=== PATIENT | male | born 1940 | race Hispanic/Latino ===

== ENCOUNTER 2018-12-24 18:10 | Inpatient (IN) | payer MEDICARE ==
[2018-12-24 18:17] VITALS: BMI 26.4
[2018-12-24] MEDS ORDERED: Sodium Chloride 0.9% 500 ML IV STA (18:54)
[2018-12-24 19:19] LABS: VENOUS BLOOD GAS BASE EXCESS 2.6 mmol/L (0.0-2.0); VENOUS BLOOD GAS PO2 18 mm/Hg (30-55); VENOUS BLOOD PH 7.41 (7.32-7.43)
[2018-12-24 19:42] LABS: ALB/GLOB RATIO 1.3 (1.1-1.8); ALT/SGPT 33 U/L (7-56); AST/SGOT 34 U/L (17-59); BASO # 0.03 K/mm3 (0.0-2.0); BASO % 0.2 % (0.0-3.0); BLOOD UREA NITROGEN 20 mg/dL (7-21); CALCIUM 9.8 mg/dL (8.4-10.5); EOS # 0.1 (0.0-0.7); EOS % 0.9 % (1.5-5.0); GFR NON-AFRICAN AMERICAN 59; HEMOGLOBIN 16.7 g/dL (14.0-18.0); LYMPH # 0.7 (1.2-3.4); LYMPH % 4.3 % (22.0-35.0); MEAN CELL VOLUME 87.5 fl (80.0-105.0); MEAN CORPUSCULAR HEMOGLOBIN 28.5 pg (25.0-35.0); MEAN CORPUSCULAR HGB CONC 32.6 g/dl (31.0-37.0); MEAN PLATELET VOLUME 10.2 fl (7.0-11.0); MONO # 0.4 (0.1-0.6); MONO % 2.4 % (1.0-6.0); PLATELET COUNT 214 10^3/uL (120.0-450.0); RBC 5.86 10^6/uL (3.5-6.1); RED CELL DISTRIBUTION WIDTH 14.1 % (11.5-14.5); WHITE BLOOD COUNT 16.3 10^3/uL (4.5-11.0)
[2018-12-24 20:02] LABS: VENOUS BLOOD GAS BASE EXCESS 0.1 mmol/L (0.0-2.0); VENOUS BLOOD GAS PO2 97 mm/Hg (30-55); VENOUS BLOOD PH 7.41 (7.32-7.43)
[2018-12-24 20:10] LABS: BARBITURATES, UR NEGATIVE (NEGATIVE); BENZODIAZEPINES, UR NEGATIVE (NEGATIVE); OPIATES, UR NEGATIVE (NEGATIVE); PHENCYCLIDINE, UR NEGATIVE (NEGATIVE)
[2018-12-24] MEDS ORDERED: Azithromycin 500MG/NS 250ml 500 MG/250 ML BAG IVPB STA (20:14)
[2018-12-24] MEDS ORDERED: cefTRIAXone 1 gm 1 GM/100 ML BAG IVPB STA (20:15)
--- NOTE | 2018-12-24 20:21 | ED PDOC ---
Arrival/HPI - General Chief Complaint: Medical Clearance Time Seen by Provider: 12/24/18 18:38 Historian: Patient - History of Present Illness Narrative History of Present Illness (Text): 12/24/18 20:22 70-year-old male with no significant past medical history reports while he was visiting [place] of his and his [place] he developed sudden onset of chills and shaking. States that despite drinking hot tea and warming himself with a blanket he still was shaking. Otherwise: (-) fever, (-) cough, (-) sore throat, (-) URI symptoms, (-) SOB, (-) chest pain, (-) N/V/D, (- ) abdominal pain, (-) flank pain, (-) urinary symptoms, (-) recent travel, (-) sick contacts. PMD Naheed Past Medical History - Cardiac Hx Cardiac Disorders: No - Pulmonary Hx Respiratory Disorders: No - Neurological Hx Neurological Disorder: No - HEENT Hx HEENT Disorder: No - Renal Hx Renal Disorder: No - Endocrine/Metabolic Hx Endocrine Disorders: No - Hematological/Oncological Hx Blood Disorders: No - Integumentary Hx Dermatological Disorder: No - Musculoskeletal/Rheumatological Hx Musculoskeletal Disorders: No - Gastrointestinal Hx Gastrointestinal Disorders: No - Genitourinary/Gynecological Hx Genitourinary Disorders: Yes Hx Prostate Cancer: Yes - Psychiatric Hx Psychophysiologic Disorder: No Hx Substance Use: No - Anesthesia Hx Anesthesia: No Hx Anesthesia Reactions: No Hx Malignant Hyperthermia: No Family/Social History Family/Social History: No Known Family HX Smoking Status: Never Smoked Hx Alcohol Use: No Hx Substance Use: No Allergies/Home Meds Allergies/Adverse Reactions: Allergies Penicillins Allergy (Verified 12/24/18 18:17) RASH Home Medications: Home Meds Medication Instructions Recorded Confirmed No Known Home Med 12/24/18 12/24/18 Review of Systems - Review of Systems Constitutional: absent: Fatigue, Fevers ENT: absent: Sore Throat, Rhinorrhea, Sinus Congestion Respiratory: absent: SOB, Cough, Sputum, Wheezing Cardiovascular: absent: Chest Pain, Palpitations, Edema Gastrointestinal: absent: Abdominal Pain, Nausea, Vomiting Genitourinary Male: absent: Dysuria, Frequency, Hematuria Musculoskeletal: absent: Arthralgias, Back Pain, Neck Pain Skin: absent: Rash, Pruritis, Skin Lesions Neurological: absent: Headache, Dizziness Physical Exam Vital Signs Temp Pulse Resp BP Pulse Ox 12/24/18 19:08 100.7 F H 12/24/18 19:00 100.7 F H 12/24/18 18:31 98.5 F 87 18 165/57 H 95 Temperature: Febrile Blood Pressure: Normal Pulse: Regular Respiratory Rate: Normal Appearance: Positive for: Well-Appearing, Non-Toxic, Comfortable Pain Distress: None Mental Status: Positive for: Alert and Oriented X 3 - Systems Exam Head: Present: Atraumatic, Normocephalic Pupils: Present: PERRL Extroacular Muscles: Present: EOMI Conjunctiva: Present: Normal Mouth: Present: Dry Neck: Present: Normal Range of Motion Respiratory/Chest: Present: Clear to Auscultation, Good Air Exchange. No: Respiratory Distress, Accessory Muscle Use, Wheezes, Decreased Breath Sounds, Rales, Rhonchi Cardiovascular: Present: Regular Rate and Rhythm, Normal S1, S2. No: Murmurs Abdomen: No: Tenderness, Distention, Peritoneal Signs Back: Present: Normal Inspection Upper Extremity: Present: Normal Inspection. No: Cyanosis, Edema Lower Extremity: Present: Normal Inspection. No: Edema Neurological: Present: GCS=15, CN II-XII Intact, Speech Normal, Motor Func Grossly Intact, Normal Sensory Function Skin: Present: Warm, Dry, Normal Color. No: Rashes Psychiatric: Present: Alert, Oriented x 3, Normal Insight, Normal Concentration Medical Decision Making ED Course and Treatment: 12/24/18 20:17 Plan: -- Labs -- IV fluids -- Urinalysis -- UDS -- Rapid flu -- EKG -- CXR -- Reassess and disposition Rectal Temp 100.7 CXR : +RLL infiltrate. Labs : wbc 16 w/ a L shift, lactate 1.3, UDS (-), flu (-) On reevaluation, patient remains awake alert and oriented 3 in no acute distress, breathing easy and unlabored. Diagnostic results d/w the patient. Diagnosis of pneumonia d/w the patient and family. Patient reports a pcn allergy, but only develops a rash without swelling/anaphylaxis. Zithromax 500 mg IV and Rocephin 1 g IV ordered. Case d/w Dr. Farfan, agrees with plan for admission, request Dr. Herrera for pulmonary consult and Dr. Bonilla for ID consult. Patient and family notified of plan for admission, which they agree with. - Lab Interpretations Lab Results: pO2 97 mm/Hg (30-55) H 12/24/18 19:58 ABG Carboxyhemoglobin 1.5 % (0.5-1.5) 12/24/18 19:10 POC ABG HHb (Measured) 64.3 % (0-5) H 12/24/18 19:10 ABG Methemoglobin 0.4 % (0.0-3.0) 12/24/18 19:10 VBG pH 7.41 (7.32-7.43) 12/24/18 19:58 VBG pCO2 39.0 (40-60) L 12/24/18 19:58 VBG HCO3 24.7 mmol/l (21-28) 12/24/18 19:58 VBG Total CO2 25.9 mmol.L (22-28) 12/24/18 19:58 VBG O2 Sat (Calc) 99.6 % (40-65) H 12/24/18 19:58 VBG Base Excess 0.1 mmol/L (0.0-2.0) 12/24/18 19:58 VBG Hgb O2 Saturation 33.8 % (95.0-98.0) L 12/24/18 19:10 VBG Potassium 3.5 mmol/L (3.6-5.2) L 12/24/18 19:58 Hemoglobin 16.8 g/dL (11.7-17.4) 12/24/18 19:10 Sodium 137.0 mmol/L (132-148) 12/24/18 19:58 Chloride 105.0 mmol/L (98-107) 12/24/18 19:58 Glucose 98 mg/dl (75-110) 12/24/18 19:58 Lactate 1.3 mmol/L (0.7-2.1) 12/24/18 19:58 FiO2 21.0 % 12/24/18 19:58 Crit Value Called To [email or web address] [email or web address] 12/24/18 19:10 Crit Value Called By sakshi Jolley 12/24/18 19:10 Blood Gas Notified Time 191712/24/18 19:10 Total Bilirubin 0.8 mg/dL (0.2-1.3) 12/24/18 19:14 AST 34 U/L (17-59) 12/24/18 19:14 ALT 33 U/L (7-56) 12/24/18 19:14 Alkaline Phosphatase 115 U/L (38-126) 12/24/18 19:14 Total Protein 8.7 g/dL (5.8-8.3) H 12/24/18 19:14 Albumin 5.0 g/dL (3.0-4.8) H 12/24/18 19:14 Globulin 3.7 gm/dL 12/24/18 19:14 Albumin/Globulin Ratio 1.3 (1.1-1.8) 12/24/18 19:14 - RAD Interpretation Radiology Orders: 12/24/18 18:53 CHEST PORTABLE [RAD] Stat - Medication Orders Current Medication Orders: Discontinued Medications Acetaminophen (Tylenol 325mg Tab) 975 mg PO STAT STA Stop: 12/24/18 19:00 Last Admin: 12/24/18 19:08 Dose: 975 mg MAR Pain/Vitals Document 12/24/18 19:08 BB (Rec: 12/24/18 19:08 BB [id number]) Vitals Temperature (97.6 F-99.6 F) 100.7 F Temperature Source Rectal Sodium Chloride (Sodium Chloride 0.9%) 500 mls @ 500 mls/hr IV .Q1H STA Stop: 12/24/18 19:53 Last Admin: 12/24/18 19:08 Dose: 500 mls/hr eMAR Start Stop Document 12/24/18 19:08 BB (Rec: 12/24/18 19:08 BB [id number]) Intravenous Solution Start Date 12/24/18 Start Time 19:08 End Date 12/24/18 - PA / RX SPECIALIST / Resident Statement /DO has reviewed & agrees with the documentation as recorded. Disposition/Present on Arrival - Present on Arrival Any Indicators Present on Arrival: No History of DVT/PE: No History of Uncontrolled Diabetes: No Urinary Catheter: No History of Decub. Ulcer: No History Surgical Site Infection Following: None - Disposition Have Diagnosis and Disposition been Completed?: Yes Diagnosis: Pneumonia, Fever Disposition: HOSPITALIZED Disposition Time: 20:00 Patient Plan: Admission Patient Problems: Current Active Problems Problem Status Onset Pneumonia Acute Condition: STABLE Referrals: Maynor Farfan DO [Primary Care Provider] - Follow up with primary Forms: [employer] ([place]is[place])
[2018-12-24 20:23] LABS: URINE APPEARANCE CLEAR (CLEAR); URINE BILIRUBIN NEGATIVE (NEGATIVE); URINE BLOOD NEGATIVE (NEGATIVE); URINE COLOR YELLOW (YELLOW); URINE GLUCOSE (UA) NEGATIVE (NEGATIVE); URINE LEUKOCYTE ESTERASE NEGATIVE Leu/uL (NEGATIVE); URINE PROTEIN NEGATIVE mg/dL (<30 mg/dL); URINE UROBILINOGEN 0.2 E.U./dL (<1 E.U./dL)
[2018-12-24 20:27] LABS: HYPOCHROMIA 1+; LYMPHOCYTE 7 % (22.0-35.0); MONOCYTE 2 % (1.0-6.0); NEUTROPHIL 91 % (50.0-70.0); PLATELET ESTIMATE NORMAL (NORMAL); TOXIC GRANULATION 1+
--- NOTE | 2018-12-25 08:24 | RAD ---
Date of service: 12/24/2018 HISTORY: chills COMPARISON: No prior. FINDINGS: LUNGS: No active pulmonary disease. PLEURA: No significant pleural effusion identified, no pneumothorax apparent. CARDIOVASCULAR: Mild aortic calcification and tortuosity Normal cardiac size. No pulmonary vascular congestion. OSSEOUS STRUCTURES: No significant abnormalities. VISUALIZED UPPER ABDOMEN: Normal. OTHER FINDINGS: None. IMPRESSION: No active disease.
[2018-12-25] MEDS: Sodium Chloride 0.45% 1,000 ML IV SCH (08:54)
--- NOTE | 2018-12-25 09:26 | CON ---
DATE: 12/25/2018 PULMONARY CONSULTATION REFERRING PHYSICIAN: Dr. Maynor Farfan REASON FOR CONSULTATION: Possible right lower lobe pneumonia. The patient is a 78-year-old male, with no significant past medical history, who presents to [facility] with a one-day history of sudden onset of shaking chills. There is no history of shortness of breath at rest, dyspnea on exertion, cough or sputum production. There is also no history of chest pain, coughing up of blood, or chest pain - brought on with deep respirations. The patient did have low-grade temperatures last night (99.4). As above, he did present with shaking chills. No known infectious exposure. No history of night sweats, weight loss or appetite change prior to the above events. No history of calf pains. No history of syncope or diaphoresis. No history of recent travel or trauma. REVIEW OF SYSTEMS: No history of nausea, vomiting or diarrhea. No acute urinary symptoms. His muscles feel weak. . Rest of the review of systems is negative. ALLERGIES: TO PENICILLIN. SOCIAL HISTORY: Negative tobacco, negative for alcohol. FAMILY HISTORY: No inheritable diseases. HOME MEDICATIONS: None. PHYSICAL EXAMINATION: GENERAL: The patient appears quite comfortable this morning. He is not short of breath at rest. He is not using accessory muscles for breathing. VITAL SIGNS: Last temperature recorded - 99.4. Pulse is 76, respirations 17, blood pressure 116/70. Initial blood pressure 165/57. Oxygen saturation on room air is 96%. HEENT: Normocephalic, atraumatic. No JVD. CARDIOVASCULAR: Positive S1, S2. No S3 gallop. LUNGS: Minimal crackles - right base. Otherwise clear. EXTREMITIES: No clubbing, cyanosis or edema. Calves are nontender to palpation. GASTROINTESTINAL: Abdomen is soft, nontender, nondistended. Bowel sounds are positive. SKIN: No acute rash. NEUROLOGIC: Exam limited at the present time. PERTINENT LABORATORY DATA: Chest x-ray was done last night and reviewed. There is a possible small patchy infiltrate noted at the right base. CBC: White count 16.3K, hemoglobin 16.7, hematocrit 51.3, platelets of 214,000. Complete metabolic profile: Total protein 8.7, albumin 5. Rest of the metabolic profile is within normal limits. IMPRESSION: 1. Rule out pneumonia - right lower lobe. 2. Possible viral syndrome. 3. Leukocytosis. PLAN: The patient presents to [facility] with a one-day history of shaking chills. As above, he did have a low-grade fever last night. Upon extensive questioning, the patient offers no new or significant pulmonary symptoms. I did review the chest x-ray as above. There is a possible small right basilar infiltrate. Cultures have been ordered and will be analyzed when feasible. Procalcitonin has been ordered. The patient has been placed on appropriate antibiotic therapy by infectious disease. The patient does state to feeling much better this morning. He is clinically improved. Additional Pulmonary intervention will be based on the above results, as well as the clinical status of the patient. I will discuss the above with Dr. Farfan this morning. Thank you very much for this pulmonary consultation. Noam Herrera MD MTDNik
--- NOTE | 2018-12-25 10:19 | CARD ---
APPROVED REPORT Date of service: 12/24/2018 EKG Measurement Heart [id number] [id number] <Conclusion> Normal sinus rhythm Left anterior fascicular block ST & T wave abnormality, consider lateral ischemia Abnormal ECG
[2018-12-25] MEDS: cefTRIAXone 1 gm 1 GM/100 ML BAG IVPB SCH (11:44)
--- NOTE | 2018-12-25 12:11 | CARD ---
APPROVED REPORT Date of service: 12/25/2018 EKG Measurement Heart [id number] 160P-3 [id number] <Conclusion> Normal sinus rhythm Left axis deviation T wave abnormality, consider lateral ischemia Abnormal ECG
--- NOTE | 2018-12-25 12:49 | CP.PCM.APN ---
Subjective - Date & Time of Evaluation Date of Evaluation: 12/25/18 Time of Evaluation: 10:00 - Subjective Subjective: Pt seen and examined at bedside. Denies cough, shortness of breath or chest pain. However, states that he is feeling week. Objective - Vital Signs/Intake and Output Vital Signs (last 24 hours): Temp Pulse Resp BP Pulse Ox 98.2 F 60 20 119/72 96 12/25/18 06:00 12/25/18 06:00 12/25/18 06:00 12/25/18 06:00 12/25/18 06:00 - Medications Medications: Current Medications Albuterol/Ipratropium (Duoneb 3 Mg/0.5 Mg (3 Ml) Ud) 3 ml IH [id number] EDWIGE Ceftriaxone Sodium (Rocephin 1 Gram Ivpb) 1 gm in 100 mls @ 100 mls/hr IVPB DAILY EDWIGE; Protocol Last Admin: 12/25/18 11:44 Dose: 100 mls/hr Azithromycin (Zithromax 500mg In Ns) 500 mg in 250 mls @ 167 mls/hr IVPB DAILY EDWIGE; Protocol Sodium Chloride (Sodium Chloride 0.45%) 1,000 mls @ 40 mls/hr IV .Q24H EDWIGE Stop: 12/27/18 07:01 Last Admin: 12/25/18 08:54 Dose: 40 mls/hr Ibuprofen (Motrin Tab) 600 mg PO Q6H PRN PRN Reason: Fever >100.4 F Oseltamivir Phosphate (Tamiflu Cap) 75 mg PO BID EDWIGE; Protocol Stop: 12/30/18 09:29 Last Admin: 12/25/18 11:43 Dose: 75 mg - Labs Labs: 12/24/18 19:14 12/24/18 19:14 - Constitutional Appears: No Acute Distress - Head Exam Head Exam: NORMOCEPHALIC - Neck Exam Neck Exam: Full ROM - Respiratory Exam Additional comments: +crackles ciera lower lungs - Cardiovascular Exam Cardiovascular Exam: REGULAR RHYTHM, +S1, +S2 - GI/Abdominal Exam GI & Abdominal Exam: Soft, Normal Bowel Sounds - Rectal Exam Rectal Exam: Deferred - Neurological Exam Neurological Exam: Alert, Awake, Oriented x3 Assessment and Plan - Assessment and Plan (Free Text) Assessment: Pt is a 78 y.o. male with pmhx of prostate CA who presented to ED w/ c/o chills/chaking. Pt also states that he was coughing since October 2018 but resolved recently. ITS Impressions Chest X-Ray 12/24/18 18:53 IMPRESSION: No active disease. Plan: R/O pneumonia - CT chest pending On Zithromax IV/Rocephin IV per ID recs Pulm and ID on consult Meds per MAR Will continue to follow
[2018-12-25] MEDS: Azithromycin 500MG/NS 250ml 500 MG/250 ML BAG IVPB SCH (12:59)
--- NOTE | 2018-12-25 13:31 | CT ---
Date of service: 12/25/2018 PROCEDURE: CT Chest without contrast HISTORY: r/o pneumonia COMPARISON: None available. TECHNIQUE: Contiguous axial images were obtained through the chest without intravenous contrast enhancement. Sagittal and coronal reconstructions were performed. Radiation dose (DLP): 549.1 mGy-cm. This CT exam was performed using one or more of the following dose reduction techniques: Automated exposure control, adjustment of the mA and/or kV according to patient size, and/or use of iterative reconstruction technique. FINDINGS: LUNGS: No pulmonary infiltrate. 6 mm noncalcified nodule in right lower lobe, seen on series 3, image 74. Follow-up with noncontrast chest CT examination is advised in 6-12 months as per Fleischner society criteria. Minimal linear pleural-based scar in left lower lobe. No other mass. MEDIASTINUM: Unremarkable thoracic aorta. No aneurysm. Normal sized heart. Main pulmonary artery unremarkable. No vascular congestion. No lymphadenopathy. There is atherosclerotic calcification of thoracic aorta PLEURA: No pleural fluid. No pneumothorax. BONES: No fracture. No destructive lesion. UPPER ABDOMEN: Grossly unremarkable. OTHER FINDINGS: None. IMPRESSION: No pulmonary infiltrate. 6 mm nodule right lower lobe. Recommend follow-up noncontrast chest CT in 6-12 months. Additional minor findings as above
[2018-12-25] MEDS: Albuterol-Ipratrop 3 mg / 0.5 (3 ml) UD IH SCH ×3 (13:58→19:48)
--- NOTE | 2018-12-25 15:23 | CP.PCM.CON ---
History of Present Illness - History of Present Illness History of Present Illness: 78 year old male with PMH of newly diagnosed prostate cancer, came in to [facility] because of sudden onset chills and rigors yesterday after visiting his 's grave with family. The patient states he thought he was just cold, but kept shivering despite being under heavy blankets. He states that he has occasional dry cough, has mild chest pain on breathing, no headache or dizziness, no rhinorrhea, no abdominal pain, no diarrhea, no dysuria, no suprapubic pain, no flank pain, no dysphagia, no sore throat. CXR does not show infiltrates, but the patient has a high WBC count. Infectious Diseases consult is requested to further evaluate and manage. Review of Systems - Review of Systems All systems: reviewed and no additional remarkable complaints except (as per HPI) Past Patient History - Past Social History Smoking Status: Former Smoker - CARDIAC Hx Cardiac Disorders: No - PULMONARY Hx Respiratory Disorders: Yes Hx Pneumonia: Yes - NEUROLOGICAL Hx Neurological Disorder: No - HEENT Hx HEENT Problems: No - RENAL Hx Chronic Kidney Disease: No - ENDOCRINE/METABOLIC Hx Endocrine Disorders: No - HEMATOLOGICAL/ONCOLOGICAL Hx Blood Disorders: No - INTEGUMENTARY Hx Dermatological Problems: No - MUSCULOSKELETAL/RHEUMATOLOGICAL Hx Musculoskeletal Disorders: Yes Hx Falls: No Hx Gout: Yes - GASTROINTESTINAL Hx Gastrointestinal Disorders: No Hx Gastroesophageal Reflux: Yes - GENITOURINARY/GYNECOLOGICAL Hx Genitourinary Disorders: Yes Hx Prostate Problems: Yes (new dx prostate ca) - PSYCHIATRIC Hx Psychophysiologic Disorder: No Hx Substance Use: No - SURGICAL HISTORY Hx Surgeries: No - ANESTHESIA Hx Anesthesia: No Hx Anesthesia Reactions: No Hx Malignant Hyperthermia: No Meds Allergies/Adverse Reactions: Allergies Allergy/AdvReac Type Severity Reaction Status Date / Time Penicillins Allergy RASH Verified 12/24/18 18:17 - Medications Medications: Current Medications Ibuprofen (Motrin Tab) 600 mg PO Q6H PRN PRN Reason: Fever >100.4 F Physical Exam - Constitutional Appears: Non-toxic, No Acute Distress - Head Exam Head Exam: NORMAL INSPECTION - Respiratory Exam Respiratory Exam: Decreased Breath Sounds - Cardiovascular Exam Cardiovascular Exam: +S1, +S2 - GI/Abdominal Exam GI & Abdominal Exam: Soft. absent: Tenderness Results - Vital Signs Recent Vital Signs: Last Vital Signs Temp 99.4 F 12/24/18 22:47 Pulse 68 12/25/18 00:52 Resp 17 12/25/18 00:52 BP 116/70 12/24/18 22:47 Pulse Ox 95 12/24/18 22:47 - Labs Result Diagrams: 12/24/18 19:14 12/24/18 19:14 Labs: Laboratory Results - last 24 hr 12/24/18 12/24/18 12/24/18 19:10 19:14 19:14 WBC 16.3 H RBC 5.86 Hgb 16.7 Hct 51.3 MCV 87.5 MCH 28.5 MCHC 32.6 RDW 14.1 Plt Count 214 MPV 10.2 Neut % (Auto) 92.2 H Lymph % (Auto) 4.3 L [place] % (Auto) 2.4 Eos % (Auto) 0.9 L Baso % (Auto) 0.2 Lymph # (Auto) 0.7 L [place] # (Auto) 0.4 Eos # (Auto) 0.1 Baso # (Auto) 0.03 Absolute Neuts (auto) 15.05 H Neutrophils % (Manual) 91 H Lymphocytes % (Manual) 7 L Monocytes % (Manual) 2 Toxic Granulation 1+ Platelet Evaluation Normal Hypochromasia 1+ pO2 18 L ABG Carboxyhemoglobin 1.5 POC ABG HHb (Measured) 64.3 H ABG Methemoglobin 0.4 VBG pH 7.41 VBG pCO2 44.0 VBG HCO3 27.9 VBG Total CO2 VBG O2 Sat (Calc) 34.5 L VBG Base Excess 2.6 H VBG Hgb O2 Saturation 33.8 L VBG Potassium Hemoglobin 16.8 Glucose Lactate FiO2 Crit Value Called To shaina Bruce.rn Crit Value Called By sakshi Jolley Blood Gas Notified Time 1917 Sodium 139 Potassium 3.9 Chloride 102 Carbon Dioxide 27 Anion Gap 14 BUN 20 Creatinine 1.2 Est GFR ( Amer) > 60 Est GFR (Non-Af Amer) 59 Random Glucose 106 Calcium 9.8 Total Bilirubin 0.8 AST 34 ALT 33 Alkaline Phosphatase 115 Total Protein 8.7 H Albumin 5.0 H Globulin 3.7 Albumin/Globulin Ratio 1.3 Venous Blood Potassium Urine Color Urine Appearance Urine pH Ur Specific [place] Urine Protein Urine Glucose (UA) Urine Ketones Urine Blood Urine Nitrate Urine Bilirubin Urine Urobilinogen Ur Leukocyte Esterase Urine Opiates Screen Urine Methadone Screen Ur Barbiturates Screen Ur Phencyclidine Scrn Ur Amphetamines Screen U Benzodiazepines Scrn U Oth Cocaine Metabols U Cannabinoids Screen Influenza Typ A,B (EIA) 12/24/18 12/24/18 12/24/18 19:14 19:15 19:42 WBC RBC Hgb Hct MCV MCH MCHC RDW Plt Count MPV Neut % (Auto) Lymph % (Auto) [place] % (Auto) Eos % (Auto) Baso % (Auto) Lymph # (Auto) [place] # (Auto) Eos # (Auto) Baso # (Auto) Absolute Neuts (auto) Neutrophils % (Manual) Lymphocytes % (Manual) Monocytes % (Manual) Toxic Granulation Platelet Evaluation Hypochromasia pO2 ABG Carboxyhemoglobin POC ABG HHb (Measured) ABG Methemoglobin VBG pH VBG pCO2 VBG HCO3 VBG Total CO2 VBG O2 Sat (Calc) VBG Base Excess VBG Hgb O2 Saturation VBG Potassium Hemoglobin Glucose Lactate FiO2 Crit Value Called To Crit Value Called By Blood Gas Notified Time Sodium Potassium Chloride Carbon Dioxide Anion Gap BUN Creatinine Est GFR ( Amer) Est GFR (Non-Af Amer) Random Glucose Calcium Total Bilirubin AST ALT Alkaline Phosphatase Total Protein Albumin Globulin Albumin/Globulin Ratio Venous Blood Potassium Urine Color Yellow Urine Appearance Clear Urine pH 6.0 Ur Specific Benton 1.025 Urine Protein Negative Urine Glucose (UA) Negative Urine Ketones Negative Urine Blood Negative Urine Nitrate Negative Urine Bilirubin Negative Urine Urobilinogen 0.2 Ur Leukocyte Esterase Negative Urine Opiates Screen Negative Urine Methadone Screen Negative Ur Barbiturates Screen Negative Ur Phencyclidine Scrn Negative Ur Amphetamines Screen Negative U Benzodiazepines Scrn Negative U Oth Cocaine Metabols Negative U Cannabinoids Screen Negative Influenza Typ A,B (EIA) Negative for flu a/b 12/24/18 19:58 WBC RBC Hgb Hct MCV MCH MCHC RDW Plt Count MPV Neut % (Auto) Lymph % (Auto) [place] % (Auto) Eos % (Auto) Baso % (Auto) Lymph # (Auto) [place] # (Auto) Eos # (Auto) Baso # (Auto) Absolute Neuts (auto) Neutrophils % (Manual) Lymphocytes % (Manual) Monocytes % (Manual) Toxic Granulation Platelet Evaluation Hypochromasia pO2 97 H ABG Carboxyhemoglobin POC ABG HHb (Measured) ABG Methemoglobin VBG pH 7.41 VBG pCO2 39.0 L VBG HCO3 24.7 VBG Total CO2 25.9 VBG O2 Sat (Calc) 99.6 H VBG Base Excess 0.1 VBG Hgb O2 Saturation VBG Potassium 3.5 L Hemoglobin Glucose 98 Lactate 1.3 FiO2 21.0 Crit Value Called To Crit Value Called By Blood Gas Notified Time Sodium 137.0 Potassium Chloride 105.0 Carbon Dioxide Anion Gap BUN Creatinine Est GFR ( Amer) Est GFR (Non-Af Amer) Random Glucose Calcium Total Bilirubin AST ALT Alkaline Phosphatase Total Protein Albumin Globulin Albumin/Globulin Ratio Venous Blood Potassium 3.5 L Urine Color Urine Appearance Urine pH Ur Specific [place] Urine Protein Urine Glucose (UA) Urine Ketones Urine Blood Urine Nitrate Urine Bilirubin Urine Urobilinogen Ur Leukocyte Esterase Urine Opiates Screen Urine Methadone Screen Ur Barbiturates Screen Ur Phencyclidine Scrn Ur Amphetamines Screen U Benzodiazepines Scrn U Oth Cocaine Metabols U Cannabinoids Screen Influenza Typ A,B (EIA) Assessment & Plan - Assessment and Plan (Free Text) Plan: Assessment Systemic inflammatory response syndrome, consider due to systemic viral illness R/O Influenza, consider acute bronchitis R/O bacteremia associated with newly diagnosed prostate cancer Plan Patient has been started Rocephin and Zithromax pending blood, urine cx, PCT; reviewed CXR and CT chest which does not show infltrates - CT chest does show pulmonary nodule which needs to be followed up by PMD will monitor clinically and trend fever curve we have also started Tamiflu discussed with Dr. Farfan
--- NOTE | 2018-12-25 19:40 | HP ---
DATE OF EXAM: 12/25/2018 HISTORY OF PRESENT ILLNESS: I know Clive from the office. He comes in yesterday with a history of visiting grave of his and his mother at the cemetery, it was kind of cold out. He got chills and shaking. He was taken to the emergency room. He had some little bit of shortness of breath, mild cough with it. He has had this before. He has had multiple pneumonias in the past. He is a 78-year-old white man who presents while visiting a grave with chills, low grade fever, shaking, and uncomfortable. He has a history of prostate cancer. He sees Dr. Fan for his prostate cancer on the outpatient. He has a history of pneumonias in the past. FAMILY HISTORY: Unknown family history. SOCIAL HISTORY: Nonsmoker. No drinking. No drugs. ALLERGIES: PENICILLIN. HOME MEDICATIONS: He does not take any home medications. REVIEW OF SYSTEMS: He is a little bit tired. He had fevers. No sore throat. No congestion. He shortness of breath. He had little cough, mostly outside in cold weather. No chest pain or palpitations. No abdominal pain. No nausea or vomiting. No problems urinating, but he does have a history of prostate cancer. He does wake up at nighttime from time to time. Occasional arthritis pains, but none now. No apparent rashes or lesions that he knows of. No headache or dizziness. PHYSICAL EXAMINATION: VITAL SIGNS: He has a 100.7 temperature, 87 pulse, 18 respiratory rate, 165/57 blood pressure, and 95% O2 sat on room air. GENERAL: He is alert, well-appearing, nontoxic, comfortable, alert and oriented x3. No acute distress at this time. HEENT: Head is atraumatic and normocephalic. Extraocular muscles are intact. Pupils are equal and reactive to light. Throat is dry. NECK: Supple. No JVD. HEART: Regular rate. Normal S1 and S2. LUNGS: Decreased breath sounds. We get him to cough, there is a little bit congestion on the right base, but no wheezes or rales if he is breathing normally just when he coughs. ABDOMEN: Soft and nontender. Positive bowel sounds. EXTREMITIES: Have no edema. NEUROLOGIC: GCS is 15. Cranial nerves II through XII grossly intact. Speech is normal. Grossly intact neurologically. He is alert and oriented x3. SKIN: Warm and dry. No apparent rashes or ulcers appreciated. No palpable thyroid. LABORATORY DATA: He had multiple tests done. In the emergency room, they called the chest x-ray positive right lower lobe infiltrate. He has a 100.7 temperature. He has a white count of 16 with a left shift. Lactate was 1.3. Fluids negative. He has got history of pneumonias in the past. I have called him with a diagnosis of pneumonia. I called in Pulmonary and Infectious Disease. He is negative for the flu. Negative toxicology screen. Urine is clean. He has a 139 sodium, potassium 3.9, BUN 20, creatinine 1.2, GFR is 59, sugar is 106, and calcium is 9.8. Total bili is 0.8, AST is 34, ALT is 33, alk phos 115, and total protein is 8.7. On blood gas, lactate was 1.3. His white count was very high at 16.3, he has 16.7 hemoglobin, 51.3 hematocrit with 214 platelets. ASSESSMENT AND PLAN: He came in with shaking chills; little bit of a cough, nonproductive; not feeling well; and history of pneumonias x4 in the past. He had a white count of 16,000 with temperature is 100.7. I put him on azithromycin, Rocephin, ibuprofen, IV fluids, and oxygen. Pulmonary and Infectious Disease consults. Physical therapy and out of bed to chair orders and diet. Clive Falcon, who is being treated for right lower lobe pneumonia. Maynor Farfan DO MTDNik
[2018-12-26] MEDS: Albuterol-Ipratrop 3 mg / 0.5 (3 ml) UD IH SCH ×4 (02:04→19:51)
[2018-12-26 07:01] LABS: MEAN CELL VOLUME 86.9 fl (80.0-105.0); MEAN CORPUSCULAR HEMOGLOBIN 27.8 pg (25.0-35.0); MEAN PLATELET VOLUME 10.7 fl (7.0-11.0); RBC 5.03 10^6/uL (3.5-6.1); RED CELL DISTRIBUTION WIDTH 14.4 % (11.5-14.5); WHITE BLOOD COUNT 7.8 10^3/uL (4.5-11.0)
[2018-12-26 07:58] LABS: ALB/GLOB RATIO 1.3 (1.1-1.8); ALBUMIN 3.8 g/dL (3.0-4.8); ALT/SGPT 29 U/L (7-56); AST/SGOT 31 U/L (17-59); BLOOD UREA NITROGEN 13 mg/dL (7-21); CALCIUM 8.9 mg/dL (8.4-10.5); GFR NON-AFRICAN AMERICAN > 60
[2018-12-26] MEDS: cefTRIAXone 1 gm 1 GM/100 ML BAG IVPB SCH (09:03)
--- NOTE | 2018-12-26 09:04 | PN ---
DATE: 12/26/2018 PULMONARY NOTE SUBJECTIVE: The patient appears comfortable this morning. He is not short of breath at rest. He does complain of weakness. PHYSICAL EXAMINATION: VITAL SIGNS: (Last noted in the computer): Temperature is 99.4, pulse 77, respirations 18, blood pressure 141/75. Oxygen saturation on room air is 97%. HEENT: Normocephalic, atraumatic. No JVD. CARDIOVASCULAR: Positive S1, S2. No S3 gallop. LUNGS: Clear bilaterally this morning. GI: Abdomen is soft, nontender and nondistended. Bowel sounds are positive. EXTREMITIES: No clubbing, cyanosis or edema. Calves are nontender to palpation. SKIN: No acute rash. NEUROLOGIC: Exam limited at the present time. PERTINENT LABORATORY DATA: CAT scan of the chest was done yesterday and reviewed. There is no pulmonary infiltrate noted. There is a 6 mm solitary pulmonary nodule noted in the right lower lobe. There is no lymphadenopathy. IMPRESSION: 1. Possible viral syndrome. 2. Leukocytosis - resolved. 3. Solitary pulmonary nodule - right lower lobe. PLAN: The patient appears comfortable this morning. He is not short of breath at rest. He does state to feeling better overall. However, he does complain of being very weak this morning. On physical exam, his lungs are now clear. In addition, the oxygen saturation on room air is 97%. I did review the CAT scan findings at length this morning with the patient. The patient is well aware that he will need to follow up with me in the office - concerning the solitary pulmonary nodule. I did give him my card/information for a followup appointment. I would continue with the antibiotic coverage as per Infectious Disease. Low-grade temperatures persist. However, the leukocytosis has now resolved. Clinical status of the patient has certainly improved - compared to the initial presentation. Repeat labs are pending. I will discuss the above with Dr. Farfan. Noam Herrera MD [facility]ICA
--- NOTE | 2018-12-26 09:26 | PN ---
DATE: 12/26/2018 SUBJECTIVE: I saw him resting in bed. He slept fairly well last night. He is comfortable. He is on IV antibiotics, on Tamiflu. He is on DuoNeb, Rocephin, IV fluids, Tamiflu and Zithromax. PHYSICAL EXAMINATION: VITAL SIGNS: He has 99.4 temperature, 77 pulse, 141/75 blood pressure, 18 respiratory rate, and 97% O2 sat on room air. HEAD: Atraumatic and normocephalic. HEART: Regular rate. LUNGS: Decreased breath sounds, but clear. ABDOMEN: Soft. EXTREMITIES: No edema. NEUROLOGIC: He is comfortable. LABORATORY DATA: He has a 7.8 white count, when he came in yesterday it was 16.3 much better; hemoglobin 14, hematocrit 42.7, platelets 161. He has 139 sodium, potassium 3.9, BUN 20, creatinine 1.2, sugar is 106, calcium is 9.8, total bilirubin is 0.8, AST is 34, ALT is 33, alkaline phosphatase 115. Procalcitonin was high at 1.97. Urine was clean. Toxicology clean. Serology is clean. Micro so far is clean. ASSESSMENT AND PLAN: He is being seen by Infectious Disease and Pulmonary. He had shaking chills when he got here. He had a CAT scan of the chest done. He has a 6 mm right lower lobe nodule. Infectious Disease feels systemic inflammatory response syndrome due to systemic prior illness, rule out influenza, consider it to be bronchitis, newly diagnosed prostate cancer. When I get the okay from Infectious Disease, I will discharge him and I will continue aggressive treatment and care for possible flu, bronchitis, systemic inflammatory response syndrome. Maynor Farfan DO
[2018-12-26] MEDS: Azithromycin 500MG/NS 250ml 500 MG/250 ML BAG IVPB SCH (10:23)
--- NOTE | 2018-12-26 13:04 | CT ---
Date of service: 12/26/2018 PROCEDURE: CT Abdomen and Pelvis without intravenous contrast HISTORY: +bcx COMPARISON: None. TECHNIQUE: Without contrast.. Contrast dose: Radiation dose: Total exam DLP = 721.22 mGy-cm. This CT exam was performed using one or more of the following dose reduction techniques: Automated exposure control, adjustment of the mA and/or kV according to patient size, and/or use of iterative reconstruction technique. FINDINGS: LOWER THORAX: Unremarkable. LIVER: Unremarkable. No gross lesion or ductal dilatation. Small simple cysts are seen in the liver GALLBLADDER AND BILE DUCTS: Unremarkable. PANCREAS: Unremarkable. No gross lesion or ductal dilatation. SPLEEN: Unremarkable. ADRENALS: Unremarkable. No mass. KIDNEYS AND URETERS: Unremarkable. No hydronephrosis. No solid mass. VASCULATURE: Unremarkable. No aortic aneurysm. Aortic calcification BOWEL: Unremarkable. No obstruction. No gross mural thickening. Moderate constipation APPENDIX: Unremarkable. Normal appendix. PERITONEUM: Unremarkable. No free fluid. No free air. LYMPH NODES: Unremarkable. No enlarged lymph nodes. BLADDER: Unremarkable. REPRODUCTIVE: Unremarkable. BONES: Disc degeneration at L4-5 and L5-S1 OTHER FINDINGS: None. IMPRESSION: No acute intra-abdominal abnormalities
--- NOTE | 2018-12-26 13:27 | CP.PCM.PCO ---
Physician Communication Note - Physician Communication Note Physician Communication Note: Initial bcx growing gram (-) jesus, d/w ID & will repeat BCX.
--- NOTE | 2018-12-26 13:59 | CP.PCM.PN ---
Subjective - Date & Time of Evaluation Date of Evaluation: 12/26/18 Time of Evaluation: 11:20 - Subjective Subjective: Patient is feeling better, no fevers, no more shaking chills, no nausea, no diarrhea, no abdominal pain, no dysuria. Objective - Vital Signs/Intake and Output Vital Signs (last 24 hours): Temp Pulse Resp BP Pulse Ox 98.2 F 69 20 134/76 97 12/25/18 14:00 12/25/18 14:00 12/25/18 14:00 12/25/18 14:00 12/25/18 14:00 - Medications Medications: Current Medications Albuterol/Ipratropium (Duoneb 3 Mg/0.5 Mg (3 Ml) Ud) 3 ml IH [id number] [facility] Last Admin: 12/25/18 13:58 Dose: Not Given Ceftriaxone Sodium (Rocephin 1 Gram Ivpb) 1 gm in 100 mls @ 100 mls/hr IVPB DAILY EDWIGE; Protocol Last Admin: 12/25/18 11:44 Dose: 100 mls/hr Azithromycin (Zithromax 500mg In Ns) 500 mg in 250 mls @ 167 mls/hr IVPB DAILY EDWIGE; Protocol Last Admin: 12/25/18 12:59 Dose: 167 mls/hr Sodium Chloride (Sodium Chloride 0.45%) 1,000 mls @ 40 mls/hr IV .Q24H EDWIGE Stop: 12/27/18 07:01 Last Admin: 12/25/18 08:54 Dose: 40 mls/hr Ibuprofen (Motrin Tab) 600 mg PO Q6H PRN PRN Reason: Fever >100.4 F Oseltamivir Phosphate (Tamiflu Cap) 75 mg PO BID EDWIGE; Protocol Stop: 12/30/18 09:29 Last Admin: 12/25/18 11:43 Dose: 75 mg - Labs Labs: 12/24/18 19:14 12/24/18 19:14 - Constitutional Appears: Chronically Ill - Head Exam Head Exam: NORMAL INSPECTION - ENT Exam ENT Exam: Mucous Membranes Moist - Neck Exam Neck Exam: absent: Meningismus - Respiratory Exam Respiratory Exam: Decreased Breath Sounds - Cardiovascular Exam Cardiovascular Exam: +S1, +S2 - GI/Abdominal Exam GI & Abdominal Exam: Soft. absent: Tenderness Assessment and Plan - Assessment and Plan (Free Text) Plan: Assessment Systemic inflammatory response syndrome, sepsis due to gram negative bacilli bacteremia, source to be determined on top of probable systemic viral illness R/O Influenza, in this patient with newly diagnosed prostate cancer Plan Patient on Rocephin and has been tolerating it - will switch to Merrem for now pending identification and sensitivities of the gram negative bacilli in the blood; follow up urine cx; will get CT A/P and 2D echo and repeat blood cx reviewed CXR and CT chest which does not show infltrates - CT chest does show pulmonary nodule which needs to be followed up by PMD and Pulmonary will continue to monitor clinically and trend fever curve will also continue Tamiflu day [address] Farfan previously
[2018-12-26] MEDS: Meropenem IV 1 gm in NS 1 GM/50 ML BAG IVPB SCH ×2 (14:36→22:08)
[2018-12-26] MEDS: Sodium Chloride 0.45% 1,000 ML IV SCH (17:41)
[2018-12-27] MEDS: Albuterol-Ipratrop 3 mg / 0.5 (3 ml) UD IH SCH ×5 (01:32→19:28)
[2018-12-27] MEDS: Meropenem IV 1 gm in NS 1 GM/50 ML BAG IVPB SCH ×4 (05:30→22:10)
[2018-12-27] MEDS: Sodium Chloride 0.45% 1,000 ML IV SCH (06:25)
[2018-12-27 07:07] LABS: MEAN CELL VOLUME 86.8 fl (80.0-105.0); MEAN CORPUSCULAR HGB CONC 32.3 g/dl (31.0-37.0); MEAN PLATELET VOLUME 10.1 fl (7.0-11.0); RBC 5.36 10^6/uL (3.5-6.1); RED CELL DISTRIBUTION WIDTH 14.6 % (11.5-14.5)
[2018-12-27 08:00] LABS: ALB/GLOB RATIO 1.4 (1.1-1.8); ALBUMIN 4.1 g/dL (3.0-4.8); ALT/SGPT 38 U/L (7-56); AST/SGOT 31 U/L (17-59); BLOOD UREA NITROGEN 10 mg/dL (7-21); CALCIUM 9.5 mg/dL (8.4-10.5); GFR NON-AFRICAN AMERICAN > 60
--- NOTE | 2018-12-27 08:42 | PN ---
DATE: 12/27/2018 PULMONARY NOTE SUBJECTIVE: The patient appears very comfortable this morning. He is not short of breath at rest. PHYSICAL EXAMINATION: VITALS: (Last noted in the computer): Temperature is 98, pulse 76, respirations 18, blood pressure 119/73. Oxygen saturation on room air 93-96%. HEENT: Normocephalic, atraumatic. No JVD. CARDIOVASCULAR: Positive S1, S2. No S3 gallop. LUNGS: Clear bilaterally. EXTREMITIES: No clubbing, cyanosis, or edema. Calves are nontender to palpation. GASTROINTESTINAL: Abdomen is soft, nontender, and nondistended. Bowel sounds are positive. SKIN: No acute rash. NEUROLOGIC: Exam limited at the present time. IMPRESSION: 1. Possible viral syndrome. 2. Leukocytosis - resolved. 3. Solitary pulmonary nodule - right lower lobe. PLAN: The patient appears very comfortable this morning. He is not short of breath at rest. He does state to feeling much better overall. He does state that he is much less weak this morning. On physical exam, his lungs remain clear. In addition, there is no significant alveolar-arterial gradient. The patient is currently on DuoNeb treatments. The patient also remains on antibiotic therapy - as per Infectious Disease. The temperatures have fully resolved. The leukocytosis has fully resolved. Clinical status of the patient is significantly improved - compared to his initial presentation. If/when discharged, the patient knows he will have to follow up with me - regarding his solitary pulmonary nodule. I will discuss the above with Dr. Farfan. Noam Herrera MD MTDNik
--- NOTE | 2018-12-27 11:18 | US ---
PROCEDURE: Right lower extremity venous US HISTORY: Leg pain and swelling. Evaluate for DVT. PHYSICIAN(S): Robin Do M.D. TECHNIQUE: Duplex sonography and color-flow Doppler with graded compression were used to evaluate the deep venous system of the right lower extremity. FINDINGS: The visualized deep venous system of the right lower extremity is sonographically normal and compressible. Normal waveforms and augmentation are seen. There is no sonographic evidence for deep venous thrombosis in the visualized segments of the right lower extremity. IMPRESSION: 1. No sonographic evidence for deep venous thrombosis in the visualized segments of the right lower extremity.
--- NOTE | 2018-12-27 14:51 | PN ---
DATE: 12/27/2018 SUBJECTIVE: I saw him in his room, sitting out of bed to chair today. He is comfortable. He is having a right leg swelling. I am ordering a venous Doppler of the right leg. It is also interesting enough, had a gram-negative jesus in his blood culture. We will see what Dr. Bonilla wants to do about that. He is on antibiotics right now, but he is comfortable. No chest pain, no shortness breath or abdominal pain. He is eating well. PHYSICAL EXAMINATION: VITAL SIGNS: Temperature 98.2, 71 pulse, 136/92 blood pressure, 18 respiratory rate, 98% O2 sat in room air. HEAD: Atraumatic, normocephalic. HEART: Regular rate. LUNGS: Decreased breath sounds but clear. ABDOMEN: Soft. EXTREMITIES: Not really swollen on the right leg, no tenderness to the calf. It is loose. I do not feel any masses or any ulcers or any swelling and Homans' sign is negative, but I will do a venous Doppler to make sure. LABORATORY DATA: He has a 9 white count, 15 hemoglobin, 46.5 hematocrit with 183 platelets. His lactate is 1.3. He has 139 sodium, potassium 4.3, BUN 10, creatinine 1, GFR is greater than 60, sugar 96, calcium Total bili is 0.4, AST is 31, ALT 38, alk phos 39, total protein 7. Albumin is 4.1. Procalcitonin was high at 1.97. Urine was clean. Toxicology was clean. Serology was clean, but he does have gram-negative jesus on blood culture. PLAN: Dr. Bonilla is on the case. Dr. Herrera is on the case for questionable pneumonia. We will see if he wants to change the antibiotics around. We will check his labs tomorrow. Venous Dopplers of right lower extremity. Maynor Farfan DO MTDD
--- NOTE | 2018-12-27 14:59 | CP.PCM.PN ---
Subjective - Date & Time of Evaluation Date of Evaluation: 12/27/18 Time of Evaluation: 12:05 - Subjective Subjective: Patient is feeling much better, no fevers overnight, no diarrhea, no abdominal pain, no cough, no dysuria currently. Objective - Vital Signs/Intake and Output Vital Signs (last 24 hours): Temp Pulse Resp BP Pulse Ox 98.3 F 65 18 138/81 98 12/26/18 06:00 12/26/18 06:00 12/26/18 06:00 12/26/18 06:00 12/26/18 06:00 Intake and Output: 12/26/18 12/26/18 06:59 18:59 Intake Total 1100 280 Balance 1100 280 - Medications Medications: Current Medications Albuterol/Ipratropium (Duoneb 3 Mg/0.5 Mg (3 Ml) Ud) 3 ml IH [id number] EDWIGE Last Admin: 12/26/18 13:12 Dose: 3 ml Sodium Chloride (Sodium Chloride 0.45%) 1,000 mls @ 40 mls/hr IV .Q24H EDWIGE Stop: 12/27/18 07:01 Last Admin: 12/25/18 08:54 Dose: 40 mls/hr Meropenem (Merrem Iv 1 Gm Premix) 1 gm in 50 mls @ 100 mls/hr IVPB Q8 EDWIGE; Protocol Ibuprofen (Motrin Tab) 600 mg PO Q6H PRN PRN Reason: Fever >100.4 F Oseltamivir Phosphate (Tamiflu Cap) 75 mg PO BID EDWIGE; Protocol Stop: 12/30/18 09:29 Last Admin: 12/26/18 09:16 Dose: 75 mg - Labs Labs: 12/26/18 06:35 12/26/18 06:35 - Constitutional Appears: Non-toxic, No Acute Distress, Chronically Ill - Head Exam Head Exam: NORMAL INSPECTION - Respiratory Exam Respiratory Exam: absent: Rales, Rhonchi - Cardiovascular Exam Cardiovascular Exam: +S1, +S2 - GI/Abdominal Exam GI & Abdominal Exam: Soft. absent: Tenderness Assessment and Plan - Assessment and Plan (Free Text) Plan: Assessment Systemic inflammatory response syndrome, sepsis due to gram negative bacilli bacteremia, source to be determined on top of probable systemic viral illness R/O Influenza, in this patient with newly diagnosed prostate cancer Plan Patient was on Rocephin and tolerated it - continue Merrem for now pending identification and sensitivities of the gram negative bacilli in the blood; follow up urine cx; reviewed CT A/P which did not show specific source and follow up 2D echo; repeat blood cx is negative so far reviewed CXR and CT chest which does not show infltrates - CT chest does show pulmonary nodule which needs to be followed up by PMD and Pulmonary will continue to monitor clinically and trend fever curve will also continue Tamiflu day 3 will get PSA levels discussed with Dr. Farfan
--- NOTE | 2018-12-27 17:09 | CARD ---
APPROVED REPORT Date of service: 12/27/2018 EXAM: Two-dimensional and M-mode echocardiogram with Doppler and color Doppler. INDICATION Infection:Rule out subacute bacterial endocarditis 2D DIMENSIONS Left Atrium (2D)4.1 (1.6-4.0cm)IVSd1.4 (0.7-1.1cm) LVDd3.6 (3.9-5.9cm)PWd1.4 (0.7-1.1cm) LVDs2.5 (2.5-4.0cm)FS (%) 28.9 % LVEF (%)56.6 (>50%) M-Mode DIMENSIONS Aortic Root3.70 (2.2-3.7cm)Aortic Cusp Exc.2.00 (1.5-2.0cm) Aortic Valve AoV Peak Pqeagpay685.0cm/Chey Peak GR.9mmHgLVOT Peak Mggcjgpr798.0cm/s LVOT VTI24.90cmAI P 1/2 Vils278bz Mitral Valve MV E Hgnevhcf30.6cm/sMV A Hlmtdkdy18.4cm/sE/A ratio0.8 TDI Lateral E' Peak V9.25cm/sMedial E' Peak V8.38cm/sE/Lateral E'7.7 E/Medial E'8.5 Pulmonary Valve PV Peak Uabyjpvo00.3cm/sPV Peak Grad.3mmHg Tricuspid Valve TR Peak Zvgicoep640ri/sRAP CQHCHDYK12uvLaJV Peak Gr.18mmHg [id number] LEFT VENTRICLE The left ventricle is normal size. There is mild concentric left ventricular hypertrophy. The left ventricular function is normal. The left ventricular ejection fraction is within the normal range. There is normal LV segmental wall motion. RIGHT VENTRICLE The right ventricle is normal size. The right ventricular systolic function is normal. ATRIA The left atrium is mildly dilated. The right atrium size is normal. The interatrial septum is intact with no evidence for an atrial septal defect. AORTIC VALVE The aortic valve is normal in structure. There is mild aortic regurgitation. There is no aortic valvular stenosis. MITRAL VALVE The mitral valve is normal in structure. Mitral regurgitation is mild. TRICUSPID VALVE The tricuspid valve is normal in structure. There is mild tricuspid regurgitation. PULMONIC VALVE The pulmonary valve is normal in structure. GREAT VESSELS The aortic root is normal in size. The IVC is normal in size and collapses >50% with inspiration. PERICARDIAL EFFUSION There is no pleural effusion. There is no pericardial effusion. <Conclusion> Mildly dilated LA. Mild concentric LVH. Normal LV size and systolic function. Mild AI. Mild MR and TR. No vegetations seen, but if clinical suspicion is high, consider DIMITRIOS imaging.
[2018-12-28] MEDS: Albuterol-Ipratrop 3 mg / 0.5 (3 ml) UD IH SCH ×3 (01:33→13:27)
[2018-12-28] MEDS: Meropenem IV 1 gm in NS 1 GM/50 ML BAG IVPB SCH ×2 (05:31→13:02)
[2018-12-28 07:07] LABS: MEAN CELL VOLUME 87.5 fl (80.0-105.0); MEAN CORPUSCULAR HEMOGLOBIN 28.1 pg (25.0-35.0); MEAN CORPUSCULAR HGB CONC 32.1 g/dl (31.0-37.0); MEAN PLATELET VOLUME 10.7 fl (7.0-11.0); RBC 5.34 10^6/uL (3.5-6.1); RED CELL DISTRIBUTION WIDTH 14.3 % (11.5-14.5); WHITE BLOOD COUNT 7.4 10^3/uL (4.5-11.0)
[2018-12-28 07:43] LABS: ALB/GLOB RATIO 1.2 (1.1-1.8); ALBUMIN 4.1 g/dL (3.0-4.8); ALT/SGPT 36 U/L (7-56); AST/SGOT 41 U/L (17-59); BLOOD UREA NITROGEN 16 mg/dL (7-21); CALCIUM 9.3 mg/dL (8.4-10.5); GFR NON-AFRICAN AMERICAN > 60
[2018-12-28 08:58] VITALS: BP 143/74; PULSE 60; RESP 19; TEMP 98.1; O2SAT 94
--- NOTE | 2018-12-28 10:21 | PN ---
DATE: 12/28/2018 PULMONARY NOTE SUBJECTIVE: The patient appears very comfortable this morning. He is not short of breath at rest. PHYSICAL EXAMINATION: VITAL SIGNS: (Last noted in the computer): Temperature is 98.2, pulse 71, respirations 18, blood pressure 136/92. Oxygen saturation on room air is 98%. HEENT: Normocephalic, atraumatic. NECK: No JVD. CARDIOVASCULAR: Positive S1, S2. No S3 gallop. LUNGS: Clear bilaterally. EXTREMITIES: Extremities: No clubbing, cyanosis or edema. Calves are nontender to palpation. GI: Abdomen is soft, nontender and nondistended. Bowel sounds are positive. SKIN: No acute rash. NEUROLOGIC: Rain limited at the present time. IMPRESSION: 1. Possible viral syndrome. 2. Leukocytosis - resolved. 3. Solitary pulmonary nodule - right lower lobe. PLAN: The patient appears very comfortable this morning. He is not short of breath at rest. He does state to feeling much, much better overall. On physical exam, his lungs remain clear. In addition, the oxygen saturation on room air is 98%. I did review the CAT scan of the chest findings in my assessment a few days ago. There are no acute abnormalities noted. There is a small right lower lobe nodule - which will be followed as an outpatient. Input by Dr. Matthews (Infectious Disease) are also noted. Clinical status of the patient is significantly improved overall. I would continue with the workup as per Infectious Disease. As far as his pulmonary status is concerned, no additional pulmonary intervention is needed or warranted. Again, I did give the patient my information/card for a followup appointment as an outpatient.. He promises to see me in the office. I will thus followup on this patient again as requested. Please call me for any additional pulmonary questions or problems. I will discuss the above with Dr. Farfan. Noam Herrera MD ERICA
--- NOTE | 2018-12-28 14:13 | CP.PCM.PN ---
Subjective - Date & Time of Evaluation Date of Evaluation: 12/28/18 Time of Evaluation: 11:10 - Subjective Subjective: Patient is feeling much better, able to work around the hallway, no fevers, no diarrhea, no SOB, no cough. Objective - Vital Signs/Intake and Output Vital Signs (last 24 hours): Temp Pulse Resp BP Pulse Ox 98.2 F 71 18 136/92 H 98 12/27/18 06:00 12/27/18 06:00 12/27/18 06:00 12/27/18 06:00 12/27/18 06:00 Intake and Output: 12/27/18 12/27/18 06:59 18:59 Intake Total 620 Balance 620 - Medications Medications: Current Medications Albuterol/Ipratropium (Duoneb 3 Mg/0.5 Mg (3 Ml) Ud) 3 ml IH [id number] EDWIGE Last Admin: 12/27/18 13:25 Dose: 3 ml Meropenem (Merrem Iv 1 Gm Premix) 1 gm in 50 mls @ 100 mls/hr IVPB Q8 EDWIGE; Protocol Last Admin: 12/27/18 08:38 Dose: 100 mls/hr Ibuprofen (Motrin Tab) 600 mg PO Q6H PRN PRN Reason: Fever >100.4 F Oseltamivir Phosphate (Tamiflu Cap) 75 mg PO BID EDWIGE; Protocol Stop: 12/30/18 09:29 Last Admin: 12/27/18 11:00 Dose: 75 mg - Labs Labs: 12/27/18 06:55 12/27/18 06:55 - Constitutional Appears: Chronically Ill - Head Exam Head Exam: NORMAL INSPECTION - Respiratory Exam Respiratory Exam: Decreased Breath Sounds - Cardiovascular Exam Cardiovascular Exam: +S1, +S2 - GI/Abdominal Exam GI & Abdominal Exam: Soft. absent: Tenderness Assessment and Plan - Assessment and Plan (Free Text) Plan: Assessment Systemic inflammatory response syndrome, sepsis due to ESBL-producing E. coli bacteremia, source not clear but could be the urine on top of probable systemic viral illness R/O Influenza, in this patient with newly diagnosed prostate cancer Plan Patient was on Rocephin and tolerated it - continue Merrem day 3 - will need at least 10 days of antibiotics; follow up urine cx (but now that the patient has been on antibiotics, may be negative); reviewed CT A/P which did not show specific source and 2D echo does not show vegetations; repeat blood cx is negative reviewed CXR and CT chest which does not show infltrates - CT chest does show pulmonary nodule which needs to be followed up by PMD and Pulmonary will continue to monitor clinically and trend fever curve will also continue Tamiflu day 4 PSA level is elevated but patient had prostate biopsy a month ago and the patient has prostate cancer (ie. many factors that can elevate the PSA level) discussed with Dr. Farfan
--- NOTE | 2018-12-28 20:10 | DS ---
HISTORY OF PRESENT ILLNESS: I am hoping to get him to the TCU today this 12/28/2018. He has ESBL in the blood, he will need 7 more days of IV Merrem. He could probably physical therapy to and he is on the hospital side. He has SIRS, ESBL in the urine, and he had prostate biopsy recently. He is comfortable, he is eating, and he wants to shower. PHYSICAL EXAMINATION: VITAL SIGNS: He has 98.1 temp, 60 pulse, 143/74 blood pressure, 19 respiratory rate, and 94% O2 sat on room air. HEENT: His head is atraumatic and normocephalic. HEART: Regular rate. LUNGS: Decreased breath sounds, but clear. ABDOMEN: Soft. EXTREMITIES: No edema. LABORATORY DATA: He has a white count of 7.4, hemoglobin 15, hematocrit 46.7, and platelets 215. He has a sodium 139, potassium 4.6, BUN 16, creatinine 1.1, GFR is greater than 60, sugar is 90, calcium is 9.3, and total bili is 0.6. AST is 41, ALT is 36, alk phos is 80, and total protein is 7.4. PSA was high at 11.2. Procalcitonin was high at 1.97. Urine was clean. ASSESSMENT AND PLAN: I am hoping he can go to Transitional Care Unit today to finish up 7 more days of IV antibiotics as per Infectious Disease and then discharge home to continue with his prostate cancer most probably treatment on the outpatient. Maynor Farfan DO MTDNik
== END 2018-12-28 15:43 | DRG 872 ==
LOC: ED 18:10 → ERH 20:50 → 5RNO 23:19
PROVIDERS: ADMIT Family Medicine; ATTEND Family Medicine
PROC: 3E0F7GC Introduction of Other Therapeutic Substance into Respiratory Tract, Via Natural or Artificial Opening (ICD-10-PCS; principal; 2018-12-25)
DX: A41.51 Sepsis due to Escherichia coli [E. coli] (principal); B34.9 Viral infection, unspecified; C61 Malignant neoplasm of prostate; J20.8 Acute bronchitis due to other specified organisms; R91.1 Solitary pulmonary nodule; K21.9 Gastro-esophageal reflux disease without esophagitis; Z87.891 Personal history of nicotine dependence; Z87.01 Personal history of pneumonia (recurrent)

== ENCOUNTER 2018-12-28 15:43 | Inpatient (IN) | payer OTHER, MEDICARE ==
[2018-12-28] MEDS: Albuterol-Ipratrop 3 mg / 0.5 (3 ml) UD IH SCH (20:23)
[2018-12-28] MEDS: Meropenem IV 1 gm in NS 1 GM/50 ML BAG IVPB SCH ×2 (21:08→21:49)
[2018-12-28] MEDS ORDERED: Influenza Vaccine 60 mcg/0.5 mL SYR (4YR UP) IM ONE (21:26)
[2018-12-28] MEDS ORDERED: Pneumococcal 23-Valent Vaccine IM ONE (21:26)
[2018-12-29] MEDS: Albuterol-Ipratrop 3 mg / 0.5 (3 ml) UD IH SCH ×4 (01:56→20:50)
[2018-12-29] MEDS: Meropenem IV 1 gm in NS 1 GM/50 ML BAG IVPB SCH ×3 (06:21→21:03)
--- NOTE | 2018-12-29 15:58 | HP ---
DATE OF EXAM: 12/29/2018 HISTORY OF PRESENT ILLNESS: He is now in a Special Care Unit on IV antibiotics for another 7 days. He had ESBL in his blood. He recently had a prostate biopsy. He is a 78-year-old white man, who presented with shaking chills, shortness of breath, cough. He has had pneumonias in the past, low-grade fevers. FAMILY HISTORY: He comes in with an unknown family history. SOCIAL HISTORY: Nonsmoker. No drinking. No drugs. ALLERGIES: PENICILLIN. MEDICATIONS: He is on IV antibiotics now for ESBL in the urine. REVIEW OF SYSTEMS: He is more stronger now, less tired. No sore throat. No congestion. No shortness of breath. No chest pain. No abdominal pain. No palpitations. No nausea or vomiting. No problems with urinating. He is sleeping better, walking better. No headache. No dizziness. PHYSICAL EXAMINATION GENERAL: Alert and oriented x3. No acute distress at this time. VITAL SIGNS: He has 97.4 temperature, 64 pulse, 134/75 blood pressure, 18 respiratory rate. HEENT: His head is atraumatic, normocephalic. Extraocular muscles are intact. NECK: Supple. No JVD. Thyroid midline. HEART: Regular rate. Normal S1 and S2. LUNGS: Decreased breath sounds, but clear to auscultation. No wheezes, rhonchi or rales. ABDOMEN: Soft, nontender. Positive bowel sounds. EXTREMITIES: No edema. NEUROLOGIC: GCS is 15. Cranial nerves II-XII are grossly intact. SKIN: Warm and dry. No apparent rashes or ulcers appreciated. Thyroid midline. LABORATORY DATA: He did not have any lab yet this morning. We will check it tomorrow. He is here for ESBL in the blood for IV antibiotics. He will be followed closely with Pulmonary and Infectious Disease and we also called in Urology as per daughter's wishes. We will check his labs tomorrow. IV antibiotics and physical therapy. Maynor Farfan DO ERICA
[2018-12-29] MEDS: Lactobacillus Acidophilus 500 MU Cap PO SCH (17:18)
[2018-12-30] MEDS: Meropenem IV 1 gm in NS 1 GM/50 ML BAG IVPB SCH ×3 (05:23→21:03)
[2018-12-30 07:38] LABS: HEMOGLOBIN 16.6 g/dL (14.0-18.0); MEAN CELL VOLUME 86.5 fl (80.0-105.0); MEAN CORPUSCULAR HEMOGLOBIN 28.3 pg (25.0-35.0); MEAN CORPUSCULAR HGB CONC 32.7 g/dl (31.0-37.0); MEAN PLATELET VOLUME 10.2 fl (7.0-11.0); RBC 5.86 10^6/uL (3.5-6.1); RED CELL DISTRIBUTION WIDTH 13.8 % (11.5-14.5); WHITE BLOOD COUNT 8.4 10^3/uL (4.5-11.0)
[2018-12-30 07:48] LABS: ALB/GLOB RATIO 1.2 (1.1-1.8); ALBUMIN 4.6 g/dL (3.0-4.8); ALT/SGPT 63 U/L (7-56); AST/SGOT 49 U/L (17-59); BLOOD UREA NITROGEN 21 mg/dL (7-21); CALCIUM 9.8 mg/dL (8.4-10.5); GFR NON-AFRICAN AMERICAN > 60
[2018-12-30] MEDS: Albuterol-Ipratrop 3 mg / 0.5 (3 ml) UD IH SCH ×3 (07:58→22:09)
--- NOTE | 2018-12-30 09:24 | CP.PCM.CON ---
History of Present Illness - History of Present Illness History of Present Illness: 78 year old male with PMH of newly diagnosed prostate cancer came in [place] [facility] [place] of fever and shaking chills and was found to have ESBL E. coli bacteremia, source was not clear. He has been on IV antibiotics and has been do ing well. He does not have fever or chills anymore, has more energy, no diarrhea, no dysuria, no weakness, no SOB, no cough. He is now transferred to [facility] for continued medical therapy and physical rehab. Infectious diseases consult is requested to further evaluate and manage. Patient seen earlier this morning. Review of Systems - Review of Systems All systems: reviewed and no additional remarkable complaints except (as per HPI) Past Patient History - Past Social History Smoking Status: Former Smoker - CARDIAC Hx Cardiac Disorders: No - PULMONARY Hx Respiratory Disorders: Yes Hx Pneumonia: Yes - NEUROLOGICAL Hx Neurological Disorder: No - HEENT Hx HEENT Problems: No - RENAL Hx Chronic Kidney Disease: No - ENDOCRINE/METABOLIC Hx Endocrine Disorders: No - HEMATOLOGICAL/ONCOLOGICAL Hx Blood Disorders: No - INTEGUMENTARY Hx Dermatological Problems: No - MUSCULOSKELETAL/RHEUMATOLOGICAL Hx Falls: No - GASTROINTESTINAL Hx Gastrointestinal Disorders: Yes (GERD) - GENITOURINARY/GYNECOLOGICAL Hx Genitourinary Disorders: Yes Hx Reproductive Disorders: No - PSYCHIATRIC Hx Psychophysiologic Disorder: No Hx Substance Use: No - SURGICAL HISTORY Hx Surgeries: No - ANESTHESIA Hx Anesthesia: No Hx Anesthesia Reactions: No Hx Malignant Hyperthermia: No Meds Allergies/Adverse Reactions: Allergies Allergy/AdvReac Type Severity Reaction Status Date / Time Penicillins Allergy RASH Verified 12/28/18 18:26 - Medications Medications: Current Medications Albuterol/Ipratropium (Duoneb 3 Mg/0.5 Mg (3 Ml) Ud) 3 ml IH [id number] EDWIGE; Protocol Last Admin: 12/29/18 01:56 Dose: Not Given Meropenem (Merrem Iv 1 Gm Premix) 1 gm in 50 mls @ 100 mls/hr IVPB Q8 EDWIGE; Protocol Stop: 01/04/19 21:01 Last Admin: 12/28/18 21:49 Dose: Not Given Ibuprofen (Motrin Tab) 600 mg PO Q6H PRN; Protocol PRN Reason: Fever >100.4 F Oseltamivir Phosphate (Tamiflu Cap) 75 mg PO BID EDWIGE; Protocol Last Admin: 12/28/18 17:49 Dose: 75 mg Physical Exam - Constitutional Appears: No Acute Distress - Head Exam Head Exam: NORMAL INSPECTION - Respiratory Exam Respiratory Exam: absent: Rales - Cardiovascular Exam Cardiovascular Exam: +S1, +S2 - GI/Abdominal Exam GI & Abdominal Exam: Soft. absent: Tenderness Results - Vital Signs Recent Vital Signs: Last Vital Signs Temp 97.4 F L 12/28/18 21:16 Pulse 64 12/28/18 21:16 Resp 18 12/28/18 21:16 BP 134/75 12/28/18 21:16 Pulse Ox Assessment & Plan - Assessment and Plan (Free Text) Plan: Assessment Systemic inflammatory response syndrome, sepsis due to ESBL-producing E. coli bacteremia, source not clear but could be the urine on top of probable systemic viral illness R/O Influenza, in this patient with newly diagnosed prostate cancer Plan Patient was on Rocephin and tolerated it - continue Merrem day 4 - will need at least 10 days of antibiotics; urine cx is negative but it was taken after antibiotics were initiated; reviewed CT A/P which did not show specific source and 2D echo does not show vegetations; repeat blood cx is negative reviewed CXR and CT chest which does not show infltrates - CT chest does show pulmonary nodule which needs to be followed up by PMD and Pulmonary will continue to monitor clinically and trend fever curve on Tamiflu day 5 of 5 days PSA level is elevated but patient had prostate biopsy a month ago and the patient has prostate cancer (ie. many factors that can elevate the PSA level) discussed with Dr. Farfan
--- NOTE | 2018-12-30 09:25 | CP.PCM.PN ---
Subjective - Date & Time of Evaluation Date of Evaluation: 12/30/18 Time of Evaluation: 08:35 - Subjective Subjective: Patient walking around, no fevers, feels better, more energy, not in distress. Objective - Vital Signs/Intake and Output Vital Signs (last 24 hours): Temp Pulse Resp BP Pulse Ox 97.4 F L 64 18 134/75 12/28/18 21:16 12/28/18 21:16 12/28/18 21:16 12/28/18 21:16 - Medications Medications: Current Medications Albuterol/Ipratropium (Duoneb 3 Mg/0.5 Mg (3 Ml) Ud) 3 ml IH [id number] EDWIGE; Protocol Last Admin: 12/29/18 07:15 Dose: Not Given Meropenem (Merrem Iv 1 Gm Premix) 1 gm in 50 mls @ 100 mls/hr IVPB Q8 EDWIGE; Protocol Stop: 01/04/19 21:01 Last Admin: 12/29/18 06:21 Dose: 100 mls/hr Ibuprofen (Motrin Tab) 600 mg PO Q6H PRN; Protocol PRN Reason: Fever >100.4 F Lactobacillus Acidophilus (Bacid Acidophilus) 1 cap PO BID EDWIGE Oseltamivir Phosphate (Tamiflu Cap) 75 mg PO BID EDWIGE; Protocol Last Admin: 12/29/18 10:46 Dose: 75 mg - Constitutional Appears: No Acute Distress, Chronically Ill - Head Exam Head Exam: NORMAL INSPECTION - Respiratory Exam Respiratory Exam: Decreased Breath Sounds - Cardiovascular Exam Cardiovascular Exam: +S1, +S2 - GI/Abdominal Exam GI & Abdominal Exam: Soft. absent: Tenderness Assessment and Plan - Assessment and Plan (Free Text) Plan: Assessment sepsis due to ESBL-producing E. coli bacteremia, source not clear but could be the urine on top of probable systemic viral illness R/O Influenza, in this patient with newly diagnosed prostate cancer Plan Patient was on Rocephin and tolerated it - continue Merrem day 5 - will need at least 10 days of antibiotics; urine cx is negative but it was taken after antibiotics were initiated; reviewed CT A/P which did not show specific source and 2D echo does not show vegetations; repeat blood cx is negative reviewed CXR and CT chest which does not show infltrates - CT chest does show pulmonary nodule which needs to be followed up by PMD and Pulmonary will continue to monitor clinically and trend fever curve S/P course of Tamiflu PSA level is elevated but patient had prostate biopsy a month ago and the patient has prostate cancer (ie. many factors that can elevate the PSA level) - patient to be seen by Urology discussed with Dr. Farfan previously
[2018-12-30] MEDS: Lactobacillus Acidophilus 500 MU Cap PO SCH ×2 (10:41→17:41)
--- NOTE | 2018-12-30 11:43 | PN ---
DATE: 12/30/2018 I had seen him the other day and I did do a history and physical on him, but this did not populate the list of progress notes yet. SUBJECTIVE: He is sitting out of bed to chair. His daughter is not with him. She was with him yesterday and we had a very nice conversation. He is currently on acidophilus, DuoNebs, Merrem IV, Motrin. He has a whole bunch of questions to me about prostate cancer and the treatment he is going to get from Dr. Fan. I had consulted Dr. Fan he has not come in yet. Pulmonary has not seen him, but Infectious Disease has. They began the IV antibiotics to finish out his 7 more days at the TCU. PHYSICAL EXAMINATION: VITAL SIGNS: He has a 97.4 temperature, 60 pulse, 121/67 blood pressure, 18 respiratory rate, 95% O2 sat on room air. HEAD: Atraumatic, normocephalic. HEART: Regular rate. LUNGS: Decreased breath sounds but clear. ABDOMEN: Soft, obese, nontender. EXTREMITIES: No edema. He is walking fairly well. He is going to the gym. LABORATORY DATA: He has a 139 sodium, potassium 4.4, BUN 21, creatinine 1.1, GFR is greater than 60, sugar is 99, calcium is 9.8. Total bili is 0.8, AST is 49, ALT is 63, alk phos is 100, total protein is 8.3. Albumin is 4.6. White count is 8.4, hemoglobin is 16.6, hematocrit 50.7, platelets are 235. ASSESSMENT AND PLAN: We will check his labs tomorrow. Wait for Urology to see him. He has a lot of questions about his prostate cancer and the possible treatments. In the meantime, we will continue his treatment for extended spectrum beta-lactamase in his blood and encouraged him to eat well and do the physical therapy. Maynor Farfan DO
[2018-12-31] MEDS: Albuterol-Ipratrop 3 mg / 0.5 (3 ml) UD IH SCH ×4 (03:00→21:35)
[2018-12-31] MEDS: Meropenem IV 1 gm in NS 1 GM/50 ML BAG IVPB SCH ×3 (05:24→21:06)
[2018-12-31 07:20] LABS: HEMOGLOBIN 15.2 g/dL (14.0-18.0); MEAN CELL VOLUME 86.6 fl (80.0-105.0); MEAN CORPUSCULAR HEMOGLOBIN 28.3 pg (25.0-35.0); MEAN CORPUSCULAR HGB CONC 32.7 g/dl (31.0-37.0); RBC 5.37 10^6/uL (3.5-6.1); RED CELL DISTRIBUTION WIDTH 13.8 % (11.5-14.5); WHITE BLOOD COUNT 8.8 10^3/uL (4.5-11.0)
[2018-12-31 07:40] LABS: ALB/GLOB RATIO 1.2 (1.1-1.8); ALBUMIN 3.8 g/dL (3.0-4.8); ALT/SGPT 64 U/L (7-56); AST/SGOT 40 U/L (17-59); BLOOD UREA NITROGEN 21 mg/dL (7-21); CALCIUM 9.1 mg/dL (8.4-10.5); GFR NON-AFRICAN AMERICAN > 60
--- NOTE | 2018-12-31 08:35 | PN ---
DATE: 12/31/2018 PULMONARY NOTE SUBJECTIVE: The patient appears very comfortable this morning. He is not short of breath at rest. PHYSICAL EXAMINATION: VITAL SIGNS: (Last noted in the computer): Temperature is 97.5, pulse is 60, respirations 18, blood pressure 129/76. Oxygen saturation on room air is 94-96%. HEENT: Normocephalic, atraumatic. No JVD. CARDIOVASCULAR: Positive S1, S2. No S3 gallop. LUNGS: Clear bilaterally. GI: Abdomen is soft, nontender and nondistended. Bowel sounds are positive. EXTREMITIES: No clubbing, cyanosis or edema. Calves are nontender to palpation. SKIN: No acute rash. NEUROLOGIC: Exam limited at the present time. IMPRESSION: 1. Possible viral syndrome. 2. Escherichia Coli bacteremia. 3. Leukocytosis - resolved. 4. Solitary pulmonary nodule - right lower lobe. PLAN: The patient appears very comfortable this morning. He is not short of breath at rest. He does state to feeling much, much better overall. He offers no pulmonary complaints. On physical exam, his lungs remain clear. In addition, there is no significant alveolar-arterial gradient. I would continue with the antibiotic coverage as per Infectious Disease. Input by Dr. Matthews is noted. The patient is now on the Transitional Unit - where he will participate with physical therapy. Again, at this point in time, no additional pulmonary intervention is needed or warranted. The patient is very well aware that he will need to see me in the office - regarding his pulmonary nodule. I will discuss the above with Dr. Farfan. Noam Herrera MD MTDD
[2018-12-31] MEDS: Lactobacillus Acidophilus 500 MU Cap PO SCH ×2 (09:43→17:17)
--- NOTE | 2018-12-31 10:54 | PN ---
DATE: 12/31/2018 SUBJECTIVE: He is sitting out of bed to chair. He is getting IV Merrem for his ESBL in his blood. He is on Bacid, DuoNebs, Motrin. PHYSICAL EXAMINATION: GENERAL: He is fairly comfortable. Lots of questions about his prostate cancer, he once spoke with Dr. Fan. VITAL SIGNS: 97.5 temperature, 60 pulse, 129/76 blood pressure, 18 respiratory rate, 94% O2 sat on room air. HEENT: Head is atraumatic, normocephalic. HEART: Regular rate. LUNGS: Decreased breath sounds, but clear. ABDOMEN: Soft. EXTREMITIES: No edema. LABORATORY DATA: He has a 8.8 white count, 15.2 hemoglobin, 46.5 hematocrit with 221 platelets. He has 139 sodium, potassium 4.3, BUN 21, creatinine 1, GFR is greater than 60, sugar is 124, calcium is 9.1, total bili is 0.6, AST is 40, ALT is 64, alk phos is 80, total protein 6.8. ASSESSMENT AND PLAN: He is being seen by Infectious Disease and Pulmonary. We will continue with aggressive treatment and care on Mr. Falcon. Thank you for checking his labs. Maynor Farfan DO
--- NOTE | 2018-12-31 14:20 | CP.PCM.PN ---
Subjective - Date & Time of Evaluation Date of Evaluation: 12/31/18 Time of Evaluation: 11:00 - Subjective Subjective: Comfortable, walking around the hallway of TCU, no fevers, no abdominal pain, no urinary discomfort, no nausea, no diarrhea. Objective - Vital Signs/Intake and Output Vital Signs (last 24 hours): Temp Pulse Resp BP Pulse Ox 97.4 F L 60 18 121/67 95 12/29/18 16:00 12/29/18 16:00 12/29/18 16:00 12/29/18 16:00 12/29/18 16:00 Intake and Output: 12/30/18 12/30/18 06:59 18:59 Intake Total 420 Balance 420 - Medications Medications: Current Medications Albuterol/Ipratropium (Duoneb 3 Mg/0.5 Mg (3 Ml) Ud) 3 ml IH [id number] EDWIGE; Protocol Last Admin: 12/30/18 07:58 Dose: Not Given Meropenem (Merrem Iv 1 Gm Premix) 1 gm in 50 mls @ 100 mls/hr IVPB Q8 EDWIGE; Protocol Stop: 01/04/19 21:01 Last Admin: 12/30/18 05:23 Dose: 100 mls/hr Ibuprofen (Motrin Tab) 600 mg PO Q6H PRN; Protocol PRN Reason: Fever >100.4 F Lactobacillus Acidophilus (Bacid Acidophilus) 1 cap PO BID EDWIGE Last Admin: 12/29/18 17:18 Dose: 1 cap - Labs Labs: 12/30/18 07:00 12/30/18 07:00 - Constitutional Appears: Non-toxic, No Acute Distress, Chronically Ill - Head Exam Head Exam: NORMAL INSPECTION - Respiratory Exam Respiratory Exam: Decreased Breath Sounds - Cardiovascular Exam Cardiovascular Exam: +S1, +S2 - GI/Abdominal Exam GI & Abdominal Exam: Soft. absent: Tenderness Assessment and Plan - Assessment and Plan (Free Text) Plan: Assessment sepsis due to ESBL-producing E. coli bacteremia, source not clear but could be the urine on top of probable systemic viral illness R/O Influenza, in this patient with newly diagnosed prostate cancer Plan Patient was on Rocephin and tolerated it - continue Merrem day 6 - will need at least 10 days of antibiotics; urine cx is negative but it was taken after antibiotics were initiated; reviewed CT A/P which did not show specific source and 2D echo does not show vegetations; repeat blood cx is negative reviewed CXR and CT chest which does not show infltrates - CT chest does show pulmonary nodule which needs to be followed up by PMD and Pulmonary will continue to monitor clinically and trend fever curve S/P course of Tamiflu PSA level is elevated but patient had prostate biopsy a month ago and the patient has prostate cancer (ie. many factors that can elevate the PSA level) - patient to be seen by Urology discussed with Dr. Farfan previously
--- NOTE | 2019-01-01 00:24 | CON ---
DATE: 12/31/2018 GENITOURINARY CONSULTATION CHIEF COMPLAINT: Fever and chills. HISTORY OF PRESENT ILLNESS: This is a 78-year-old male who is known to me. The patient had prostate biopsy a few weeks ago which was positive for intermediate risk prostate cancer. The patient was doing well after the biopsy with no complaints. However, a few days prior to admission, he was outside in the cold and began having reported fever and shaking chills. He was having cough and shortness of breath. He has had pneumonia in the past. He presented to the hospital. He was admitted for possible sepsis. He reports he had been voiding with no difficulty, had no dysuria, urgency or gross hematuria. He was found during his admission to have one blood culture positive and is now on the Transitional Care Unit receiving IV antibiotics as per ID recommendation. A consultation was then requested for possible urosepsis. PAST MEDICAL HISTORY: Significant for prostate cancer, questionable urosepsis, pneumonias. MEDICATIONS: Currently include acidophilus, DuoNeb, Merrem and Motrin. ALLERGIES: TO PENICILLINS. FAMILY HISTORY: Noncontributory for this admission. SOCIAL HISTORY: Denies current smoking or EtOH use, positive smoking history in the past. REVIEW OF SYSTEMS: Twelve-point review of systems was obtained. The patient currently has no acute complaints. He is feeling well. He was exercising in the gym. He has no further cough or shortness of breath. He has no further fever or chills. Other systems are negative. PHYSICAL EXAMINATION: VITAL SIGNS: The patient has been afebrile, temp of 98.1, no reported temperature during his admission; pulse 78; blood pressure 113/70; respirations 18. NECK: Supple. There is no adenopathy. CHEST: Reveals a normal inspiratory effort. CARDIAC: Exam shows positive S1, S2. ABDOMEN: There is no peripheral edema noted on abdominal exam. The abdomen is soft, nontender, nondistended. There is no hepatosplenomegaly or costovertebral angle tenderness. GENITOURINARY: Phallus is normal. Scrotum is normal. Testes bilaterally descended, nontender, no masses. Epididymides are normal. LABORATORY EXAM: WBC count normal at 8.4. WBC count was 16.3 on admission. Creatinine normal. GFR greater than 60. On microbiology, one blood culture from 12/24 grew E. coli, other bottle was negative after 5 days. Repeat blood cultures have all been negative. Urine culture showed no growth. Sputum culture, normal oral marga. On radiologic exam, the patient had a CT scan of the chest, abdomen and pelvis done on 12/25 and 12/26, there were no acute intra-abdominal abnormalities noted. CT of the chest showed no pulmonary infiltrate. There is a 6 mm nodule in the right lower lobe and followup is recommended. IMPRESSION AND PLAN: This is a 78-year-old male with likely urosepsis after a prostate biopsy; however, it did not present for approximately 2 weeks after the biopsy, which is somewhat strange. The patient currently doing well on IV antibiotics and I would continue them as per ID recommendation. The patient was found to have intermediate risk prostate cancer and plan was to treat the patient with radiation therapy and likely 6 months of adjuvant radiation therapy. Given this episode of possible urosepsis, I would recommend treatment to be done without insertion of fiducial markers as this is done transrectally and most likely I would not use rectal spacing gel for his treatment. I would monitor a urine culture prior and during his radiation treatment to make sure any infection is treated appropriately. The patient will finish his antibiotics and then follow up with me in the office after discharge for further treatment planning regarding his prostate cancer. Thank you for allowing me to participate in the care of this patient. Anthony Fan MD
[2019-01-01] MEDS: Albuterol-Ipratrop 3 mg / 0.5 (3 ml) UD IH SCH ×4 (03:14→20:22)
[2019-01-01] MEDS: Meropenem IV 1 gm in NS 1 GM/50 ML BAG IVPB SCH ×3 (05:28→21:50)
[2019-01-01] MEDS: Lactobacillus Acidophilus 500 MU Cap PO SCH ×2 (10:07→17:29)
--- NOTE | 2019-01-01 12:44 | PN ---
DATE: 12/01/2018 SUBJECTIVE: I saw him in the Transitional Care Unit. His family is leaving. He is standing up. He is getting ready to eat the breakfast. He is in good spirits. He is on IV antibiotics for his infection. He is trying in physical therapy. PHYSICAL EXAMINATION VITAL SIGNS: He has a 97.5 temperature, 63 pulse, 119/69 blood pressure, 18 respiratory rate and 96% O2 sat on room air. HEENT: Head is atraumatic, and normocephalic. HEART: Regular rate. LUNGS: Clear to auscultation. ABDOMEN: Soft. EXTREMITIES: No edema. ASSESSMENT AND PLAN: He is on IV antibiotics for few more days. Follow up labs tomorrow. He was seen by Urologist. He does have a positive prostate biopsy. followed up on the outpatient with the decision that they will make is as far as his treatment for his prostate cancer. He has four more days left of the IV antibiotics and will be discharged home. He will also followup in the outside with the pulmonary nodule and hopefully, do well. He is comfortable, in no acute distress. We will continue with IV antibiotics. We will check his labs tomorrow. Urology appreciate. Maynor Farfan DO MTDD
--- NOTE | 2019-01-01 13:24 | CP.PCM.PN ---
Subjective - Date & Time of Evaluation Date of Evaluation: 01/01/19 Time of Evaluation: 10:20 - Subjective Subjective: Comfortable, no fevers, not in distress. Objective - Vital Signs/Intake and Output Vital Signs (last 24 hours): Temp Pulse Resp BP Pulse Ox 98.1 F 60 18 113/70 98 12/31/18 10:00 12/31/18 13:34 12/31/18 10:00 12/31/18 10:00 12/31/18 10:00 Intake and Output: 12/31/18 12/31/18 06:59 18:59 Intake Total 460 Balance 460 - Medications Medications: Current Medications Albuterol/Ipratropium (Duoneb 3 Mg/0.5 Mg (3 Ml) Ud) 3 ml IH [id number] EDWIGE; Protocol Last Admin: 12/31/18 13:32 Dose: 3 ml Meropenem (Merrem Iv 1 Gm Premix) 1 gm in 50 mls @ 100 mls/hr IVPB Q8 EDWIGE; Protocol Stop: 01/04/19 21:01 Last Admin: 12/31/18 14:02 Dose: 100 mls/hr Ibuprofen (Motrin Tab) 600 mg PO Q6H PRN; Protocol PRN Reason: Fever >100.4 F Lactobacillus Acidophilus (Bacid Acidophilus) 1 cap PO BID EDWIGE Last Admin: 12/31/18 09:43 Dose: 1 cap - Labs Labs: 12/31/18 07:00 12/31/18 07:00 - Constitutional Appears: Chronically Ill - Head Exam Head Exam: NORMAL INSPECTION - ENT Exam ENT Exam: Mucous Membranes Moist - Neck Exam Neck Exam: absent: Meningismus - Respiratory Exam Respiratory Exam: Decreased Breath Sounds - Cardiovascular Exam Cardiovascular Exam: +S1, +S2 - GI/Abdominal Exam GI & Abdominal Exam: Soft. absent: Tenderness Assessment and Plan - Assessment and Plan (Free Text) Plan: Assessment sepsis due to ESBL-producing E. coli bacteremia, source not clear but could be the urine on top of probable systemic viral illness R/O Influenza, in this patient with newly diagnosed prostate cancer Plan Patient was on Rocephin and tolerated it - continue Merrem day 7 - will need at least 10 days of antibiotics; urine cx is negative but it was taken after antibiotics were initiated; reviewed CT A/P which did not show specific source and 2D echo does not show vegetations; repeat blood cx is negative reviewed CXR and CT chest which does not show infltrates - CT chest does show pulmonary nodule which needs to be followed up by PMD and Pulmonary will continue to monitor clinically and trend fever curve S/P course of Tamiflu PSA level is elevated but patient had prostate biopsy a month ago and the patient has prostate cancer (ie. many factors that can elevate the PSA level) - patient has seen by Urology discussed with Dr. Farfan previously
[2019-01-02] MEDS: Albuterol-Ipratrop 3 mg / 0.5 (3 ml) UD IH SCH ×4 (01:36→20:45)
[2019-01-02] MEDS: Meropenem IV 1 gm in NS 1 GM/50 ML BAG IVPB SCH ×3 (05:24→21:57)
[2019-01-02 07:14] LABS: HEMOGLOBIN 16.1 g/dL (14.0-18.0); MEAN CELL VOLUME 86.9 fl (80.0-105.0); MEAN CORPUSCULAR HEMOGLOBIN 28.4 pg (25.0-35.0); MEAN CORPUSCULAR HGB CONC 32.7 g/dl (31.0-37.0); MEAN PLATELET VOLUME 10.2 fl (7.0-11.0); RBC 5.67 10^6/uL (3.5-6.1); RED CELL DISTRIBUTION WIDTH 13.6 % (11.5-14.5); WHITE BLOOD COUNT 9.4 10^3/uL (4.5-11.0)
[2019-01-02 07:52] LABS: ALB/GLOB RATIO 1.3 (1.1-1.8); ALBUMIN 4.6 g/dL (3.0-4.8); ALT/SGPT 88 U/L (7-56); AST/SGOT 58 U/L (17-59); BLOOD UREA NITROGEN 19 mg/dL (7-21); CALCIUM 9.7 mg/dL (8.4-10.5); GFR NON-AFRICAN AMERICAN > 60
[2019-01-02] MEDS: Lactobacillus Acidophilus 500 MU Cap PO SCH ×2 (10:19→17:39)
--- NOTE | 2019-01-02 13:43 | PN ---
DATE: 01/02/2019 SUBJECTIVE: I saw him sitting out of bed to chair. He ate his breakfast well. He has got lots of questions for me. He is being seen by Infectious Disease and Pulmonary and Urology. PHYSICAL EXAMINATION: VITAL SIGNS: He has a 97.3 temperature, he has got 59 pulse, 120/56 blood pressure, 18 respiratory rate, 95% O2 sat on room air. HEAD: Atraumatic, normocephalic. HEART: Regular rate. LUNGS: Clear to auscultation. ABDOMEN: Soft. EXTREMITIES: No edema. MEDICATIONS: He is currently on acidophilus, DuoNebs, Merrem and Motrin. LABORATORY DATA: Last labs with this morning's are 140 sodium, potassium 4.5, BUN is 90, creatinine 1, GFR is greater than 60, sugar is 91, calcium is 9.7, total bili is 0.5, AST is 58, ALT is 88, alk phos 109, total protein is 8.3. White count 9.4, hemoglobin 16.1, hematocrit 49.3, platelets 282. His last PSA on 12/27/2018 was 11.2. PLAN: He is going to finish up the IV antibiotics as per Infectious Disease three more days and then will be able to be discharged. Maynor Farfan DO
--- NOTE | 2019-01-02 17:49 | CP.PCM.PN ---
Subjective - Date & Time of Evaluation Date of Evaluation: 01/02/19 Time of Evaluation: 10:55 - Subjective Subjective: Comfortable, walking around, no fevers, no weakness. Objective - Vital Signs/Intake and Output Vital Signs (last 24 hours): Temp Pulse Resp BP Pulse Ox 97.5 F L 63 18 119/69 96 12/31/18 16:00 12/31/18 16:00 12/31/18 16:00 12/31/18 16:00 12/31/18 16:00 Intake and Output: 01/01/19 01/01/19 06:59 18:59 Intake Total 420 420 Balance 420 420 - Medications Medications: Current Medications Albuterol/Ipratropium (Duoneb 3 Mg/0.5 Mg (3 Ml) Ud) 3 ml IH [id number] EDWIGE; Pr otocol Last Admin: 01/01/19 13:10 Dose: Not Given Meropenem (Merrem Iv 1 Gm Premix) 1 gm in 50 mls @ 100 mls/hr IVPB Q8 EDWIGE; Protocol Stop: 01/04/19 21:01 Last Admin: 01/01/19 05:28 Dose: 100 mls/hr Ibuprofen (Motrin Tab) 600 mg PO Q6H PRN; Protocol PRN Reason: Fever >100.4 F Lactobacillus Acidophilus (Bacid Acidophilus) 1 cap PO BID EDWIGE Last Admin: 01/01/19 10:07 Dose: 1 cap - Labs Labs: 12/31/18 07:00 12/31/18 07:00 - Constitutional Appears: Chronically Ill - Head Exam Head Exam: NORMAL INSPECTION - Respiratory Exam Respiratory Exam: Decreased Breath Sounds - Cardiovascular Exam Cardiovascular Exam: +S1, +S2 - GI/Abdominal Exam GI & Abdominal Exam: Soft. absent: Tenderness Assessment and Plan - Assessment and Plan (Free Text) Plan: Assessment sepsis due to ESBL-producing E. coli bacteremia, source not clear but could be the urine on top of probable systemic viral illness R/O Influenza, in this patient with newly diagnosed prostate cancer Plan Patient was on Rocephin and tolerated it - continue Merrem day 8 - will need at least 10 days of antibiotics; urine cx is negative but it was taken after antibiotics were initiated; reviewed CT A/P which did not show specific source and 2D echo does not show vegetations; repeat blood cx is negative reviewed CXR and CT chest which does not show infltrates - CT chest does show pulmonary nodule which needs to be followed up by PMD and Pulmonary will continue to monitor clinically and trend fever curve S/P course of Tamiflu PSA level is elevated but patient had prostate biopsy a month ago and the patient has prostate cancer (ie. many factors that can elevate the PSA level) - patient has seen by Urology discussed with Dr. Farfan previously
[2019-01-03] MEDS: Albuterol-Ipratrop 3 mg / 0.5 (3 ml) UD IH SCH ×4 (01:15→20:31)
[2019-01-03] MEDS: Meropenem IV 1 gm in NS 1 GM/50 ML BAG IVPB SCH ×3 (05:29→21:45)
[2019-01-03] MEDS: Lactobacillus Acidophilus 500 MU Cap PO SCH ×2 (10:16→17:56)
[2019-01-03 10:52] VITALS: RESP 18
--- NOTE | 2019-01-03 11:55 | PN ---
DATE: 01/03/2019 SUBJECTIVE: He is sitting out of bed to chair in the transitional care unit. He is on IV antibiotics. He is on Merrem, Motrin, DuoNeb, and Bacid. He has two more days of IV antibiotics, and he will be discharged home. He is also very concerned about his PSA and urological procedure in the future for him. PHYSICAL EXAMINATION VITAL SIGNS: He has 97.4 temperature, 66 pulse, 146/81 blood pressure, 20 respiratory rate, 97% O2 sat on room air. HEAD: Atraumatic normocephalic, HEART: Regular rate. LUNGS: Clear to auscultation. ABDOMEN: Soft. EXTREMITIES: No edema. LABORATORY DATA: He has definitely improved greatly with the IV antibiotics. He has 9.4 white count, 16.1 hemoglobin, 49.3 hematocrit with 282 platelets. Sodium 140, potassium 4.5, BUN 19, creatinine 1, GFR is greater than 60, sugar is 91, calcium is 9.7. Total Bili is 0.5, AST is 58, ALT is 18, alkaline phosphatase 109, total protein is 8.3. ASSESSMENT AND PLAN: He is definitely improving. The next step will be what Urology wants to do with him. He has multiple questions to me about the choices. We will handle that on the outpatient after he has done with the antibiotics. We will plan for discharge in 48 hours. He is supposed to get out of bed every day, eat the food, do his physical therapy and will continue with aggressive treatment and care for 48 hours. Maynor Farfan DO
--- NOTE | 2019-01-03 20:48 | CP.PCM.PN ---
Subjective - Date & Time of Evaluation Date of Evaluation: 01/03/19 Time of Evaluation: 11:10 - Subjective Subjective: Comfortable on a chair, no fevers, not in distress, no diarrhea, no nausea. Objective - Vital Signs/Intake and Output Vital Signs (last 24 hours): Temp Pulse Resp BP Pulse Ox 97.4 F L 56 L 20 146/81 97 01/02/19 16:00 01/02/19 16:00 01/02/19 16:00 01/02/19 16:00 01/02/19 16:00 - Medications Medications: Current Medications Albuterol/Ipratropium (Duoneb 3 Mg/0.5 Mg (3 Ml) Ud) 3 ml IH [id number] EDWIGE; Prot ocol Last Admin: 01/02/19 14:16 Dose: Not Given Meropenem (Merrem Iv 1 Gm Premix) 1 gm in 50 mls @ 100 mls/hr IVPB Q8 EDWIGE; Protocol Stop: 01/04/19 21:01 Last Admin: 01/02/19 14:34 Dose: 100 mls/hr Ibuprofen (Motrin Tab) 600 mg PO Q6H PRN; Protocol PRN Reason: Fever >100.4 F Lactobacillus Acidophilus (Bacid Acidophilus) 1 cap PO BID EDWIGE Last Admin: 01/02/19 10:19 Dose: 1 cap - Labs Labs: 01/02/19 07:00 01/02/19 07:00 - Constitutional Appears: Non-toxic, No Acute Distress - Head Exam Head Exam: NORMAL INSPECTION - Respiratory Exam Respiratory Exam: Decreased Breath Sounds - Cardiovascular Exam Cardiovascular Exam: +S1, +S2 - GI/Abdominal Exam GI & Abdominal Exam: Soft. absent: Tenderness Assessment and Plan - Assessment and Plan (Free Text) Plan: Assessment sepsis due to ESBL-producing E. coli bacteremia, source not clear but could be the urine on top of probable systemic viral illness R/O Influenza, in this patient with newly diagnosed prostate cancer Plan Patient was on Rocephin and tolerated it - continue Merrem day 9 - will need at least 10 days of antibiotics; urine cx is negative but it was taken after antibiotics were initiated; reviewed CT A/P which did not show specific source and 2D echo does not show vegetations; repeat blood cx is negative reviewed CXR and CT chest which does not show infltrates - CT chest does show pulmonary nodule which needs to be followed up by PMD and Pulmonary will continue to monitor clinically and trend fever curve S/P course of Tamiflu PSA level is elevated but patient had prostate biopsy a month ago and the patient has prostate cancer (ie. many factors that can elevate the PSA level) - patient has seen by Urology discussed with Dr. Farfan previously
[2019-01-04] MEDS: Albuterol-Ipratrop 3 mg / 0.5 (3 ml) UD IH SCH ×4 (01:40→21:00)
[2019-01-04] MEDS: Meropenem IV 1 gm in NS 1 GM/50 ML BAG IVPB SCH ×2 (06:08→13:22)
[2019-01-04 07:25] LABS: HEMOGLOBIN 15.9 g/dL (14.0-18.0); MEAN CELL VOLUME 86.9 fl (80.0-105.0); MEAN CORPUSCULAR HEMOGLOBIN 28.5 pg (25.0-35.0); MEAN CORPUSCULAR HGB CONC 32.9 g/dl (31.0-37.0); MEAN PLATELET VOLUME 9.9 fl (7.0-11.0); RBC 5.57 10^6/uL (3.5-6.1); RED CELL DISTRIBUTION WIDTH 13.7 % (11.5-14.5); WHITE BLOOD COUNT 9.8 10^3/uL (4.5-11.0)
[2019-01-04 07:55] LABS: ALB/GLOB RATIO 1.2 (1.1-1.8); ALBUMIN 4.2 g/dL (3.0-4.8); ALT/SGPT 81 U/L (7-56); AST/SGOT 48 U/L (17-59); BLOOD UREA NITROGEN 20 mg/dL (7-21); CALCIUM 9.1 mg/dL (8.4-10.5); GFR NON-AFRICAN AMERICAN > 60
[2019-01-04] MEDS: Lactobacillus Acidophilus 500 MU Cap PO SCH ×2 (09:01→17:20)
--- NOTE | 2019-01-04 14:18 | PN ---
DATE: 01/04/2019 SUBJECTIVE: I spoke to the daughter the other day for many questions. Also, Clive had many questions about his prostate with me again. He is on IV antibiotics right now. He is comfortable, out of bed. MEDICATIONS: He is on Bacid, DuoNebs, Merrem and Motrin. PHYSICAL EXAMINATION: MAEGAN SIGNS: Temperature 97.3, 76 pulse, 116/81 blood pressure, 18 respiratory rate, 96% O2 sat on room air. HEAD: Atraumatic, normocephalic. HEART: Regular rate. LUNGS: Clear to auscultation. ABDOMEN: Soft. EXTREMITIES: No edema. He is doing quite well. LABORATORY DATA: White count 9.8, 15.9 hemoglobin, 271 platelets. SMA-20 was 139 sodium, potassium 4.3, BUN 20, creatinine 1. He did very well for the SMA-20. PLAN: He is doing quite well. One more day of IV antibiotics in the TCU. He should be discharged tomorrow and he is doing quite well. Maynor Farfan DO
--- NOTE | 2019-01-04 14:33 | CP.PCM.PN ---
Subjective - Date & Time of Evaluation Date of Evaluation: 01/04/19 Time of Evaluation: 12:05 - Subjective Subjective: No fevers, not in distress, has more energy, no diarrhea, no abdominal pain, no dysuria. Objective - Vital Signs/Intake and Output Vital Signs (last 24 hours): Temp Pulse Resp BP Pulse Ox 97.3 F L 76 18 116/81 96 01/03/19 16:00 01/03/19 16:00 01/03/19 16:00 01/03/19 16:00 01/03/19 16:00 Intake and Output: 01/03/19 01/04/19 18:59 06:59 Intake Total 250 Balance 250 - Medications Medications: Current Medications Albuterol/Ipratropium (Duoneb 3 Mg/0.5 Mg (3 Ml) Ud) 3 ml IH [id number] EDWIGE; Protocol Last Admin: 01/03/19 20:31 Dose: Not Given Meropenem (Merrem Iv 1 Gm Premix) 1 gm in 50 mls @ 100 mls/hr IVPB Q8 EDWIGE; Protocol Stop: 01/04/19 21:01 Last Admin: 01/03/19 13:42 Dose: 100 mls/hr Ibuprofen (Motrin Tab) 600 mg PO Q6H PRN; Protocol PRN Reason: Fever >100.4 F Lactobacillus Acidophilus (Bacid Acidophilus) 1 cap PO BID EDWIGE Last Admin: 01/03/19 17:56 Dose: 1 cap - Labs Labs: 01/02/19 07:00 01/02/19 07:00 - Constitutional Appears: No Acute Distress - Head Exam Head Exam: NORMAL INSPECTION - ENT Exam ENT Exam: Mucous Membranes Moist - Respiratory Exam Respiratory Exam: Decreased Breath Sounds - Cardiovascular Exam Cardiovascular Exam: +S1, +S2 - GI/Abdominal Exam GI & Abdominal Exam: Soft. absent: Tenderness Assessment and Plan - Assessment and Plan (Free Text) Plan: Assessment sepsis due to ESBL-producing E. coli bacteremia, source not clear but could be the urine on top of probable systemic viral illness R/O Influenza, in this patient with newly diagnosed prostate cancer Plan Patient was on Rocephin and tolerated it - continue Merrem day 10 - will need at least 10 days of antibiotics; urine cx is negative but it was taken after antibiotics were initiated; reviewed CT A/P which did not show specific source and 2D echo does not show vegetations; repeat blood cx is negative reviewed CXR and CT chest which does not show infltrates - CT chest does show pulmonary nodule which needs to be followed up by PMD and Pulmonary will continue to monitor clinically S/P course of Tamiflu PSA level is elevated but patient had prostate biopsy a month ago and the patient has prostate cancer (ie. many factors that can elevate the PSA level) - patient has seen by Urology discussed with Dr. Farfan previously
[2019-01-04 16:52] VITALS: BP 143/71; PULSE 60; TEMP 97.8; O2SAT 95
[2019-01-05] MEDS: Albuterol-Ipratrop 3 mg / 0.5 (3 ml) UD IH SCH (07:17)
[2019-01-05] MEDS: Lactobacillus Acidophilus 500 MU Cap PO SCH (09:10)
--- NOTE | 2019-01-05 16:37 | PN ---
DATE: 01/05/2019 SUBJECTIVE: The patient is seen earlier this morning in room 304. He is awake and alert, walking around and wanted to be discharged. PHYSICAL EXAMINATION VITAL SIGNS: Temperature of 97, blood pressure is 140/70, respiratory rate of 18. HEENT: Unremarkable. NECK: Supple. HEART: Normal S1, S2. LUNGS: Have decreased breath sounds. ABDOMEN: Soft, nontender. LABORATORY EXAMINATION: Reveals a white count of 9.8, hemoglobin of 15. Chemistries are noted. ASSESSMENT AND PLAN: This is a 78-year-old male who was seen early this morning in room 304. He is eager about being discharged with sepsis and extended-spectrum beta-lactamase producing Escherichia coli bacteremia, unclear source and urine culture on top of a probable systemic viral illness. Has completed 10 days of the antibiotics. The patient states she will follow up with PMD as outpatient. Hemal Bonilla MD
--- NOTE | 2019-01-06 05:00 | DS ---
HISTORY OF PRESENT ILLNESS: He is resting comfortably in bed. He slept well. He is going to be discharged today. He was here for ESBL in the blood. He has history of prostate cancer. He had a recent biopsy. He has a pulmonary nodule. He had SIRS and the flu. He is doing great right now. He wants to go home. PHYSICAL EXAMINATION: VITAL SIGNS: He has a 97.8 temperature, 60 pulse, 143/71 blood pressure, 18 respiratory rate, 95% sat on room air. HEENT: Head: Atraumatic, normocephalic. HEART: Regular rate with decreased breath sounds, but clear. ABDOMEN: Soft. EXTREMITIES: No edema. He is going to go home on a probiotic. His labs were good on 01/04/2019. He did very well, his ALT was 81, that is what the extent of his SMA-20 and it came down from 88. He was seen by Infectious Disease. He is off the IV antibiotics. He will be seeing in the outpatient. He will also follow up with his urologist and a gas operations analyst for the pulmonary nodule. He will call me if anything changes. He will see me in the office in a week. Maynor Farfan DO MTDD
== END 2019-01-05 10:59 | disposition home or self-care (01) | DRG 872 ==
LOC: TRCU 15:43
PROVIDERS: ADMIT Family Medicine; ATTEND Family Medicine
PROC: 3E03329 Introduction of Other Anti-infective into Peripheral Vein, Percutaneous Approach (ICD-10-PCS; 2018-12-28)
PROC: F08Z4ZZ Home Management Treatment (ICD-10-PCS; 2018-12-29)
PROC: F07Z9ZZ Gait Training/Functional Ambulation Treatment (ICD-10-PCS; principal; 2018-12-30)
PROC: F07Z5ZZ Bed Mobility Treatment (ICD-10-PCS; 2018-12-30)
PROC: F07L6YZ Therapeutic Exercise Treatment of Musculoskeletal System - Lower Back / Lower Extremity using Other Equipment (ICD-10-PCS; 2018-12-30)
DX: A41.51 Sepsis due to Escherichia coli [E. coli] (principal); Z16.12 Extended spectrum beta lactamase (ESBL) resistance; C61 Malignant neoplasm of prostate; R91.1 Solitary pulmonary nodule; Z87.01 Personal history of pneumonia (recurrent); Z87.891 Personal history of nicotine dependence; Z88.0 Allergy status to penicillin